=== PATIENT | male | born 1930 | race Caucasian/White ===

== ENCOUNTER 2019-08-02 15:37 | Inpatient (IN) | payer MEDICARE, OTHER ==
[~2019-08-02] VITALS: Ht 170.2 cm; Wt 72.6 kg
--- NOTE | 2019-08-02 15:50 | NUR ---
[facility] [address] From [facility] "Exhibiting agressive behavior pts and staff here for medical clearance". PT IS BRITISH-HONDURAN SPEAKING. UNABLE TO PROVIDE INFORMATION. NO ACUTE DISTRESS APPARENT. RR EVEN AND UNLABORED ON RA. SITTING COMFORTABLY AND READY FOR EVAL.
[2019-08-02] MEDS ORDERED: OLANZAPINE 10 MG VIAL IM ONE ×2 (16:10→16:30)
[2019-08-02] MEDS ORDERED: DOCU-141 PO (16:27)
[2019-08-02] MEDS ORDERED: RISP0.2515 PO (16:27)
[2019-08-02] MEDS ORDERED: NA P133E RC (16:27)
[2019-08-02] MEDS ORDERED: SENN-261 PO (16:27)
[2019-08-02] MEDS ORDERED: DIVA250T4 PO (16:27)
[2019-08-02] MEDS ORDERED: OMEG1CAP PO (16:27)
[2019-08-02] MEDS ORDERED: FERR325T23 PO (16:27)
[2019-08-02] MEDS ORDERED: ACET-868 PO (16:27)
[2019-08-02] MEDS ORDERED: MAGN400O6 PO (16:27)
--- NOTE | 2019-08-02 16:36 | NUR ---
URINE SENT TO STAT LAB
--- NOTE | 2019-08-02 17:08 | NUR ---
CALLED HEAD FILTER TANK TENDER HELPER TARIQ Cochran
--- NOTE | 2019-08-02 17:13 | NUR ---
BLOOD DRAWN WITHOUT INCIDENT AND SENT TO STAT LAB
[2019-08-02 17:18] LABS: BASOPHILS # (AUTO) 0.1 /CMM (0.0-0.2); BASOPHILS % (AUTO) 0.7 % (0.0-2.0); EOSINOPHILS % (AUTO) 2.5 % (0.0-6.0); HEMATOCRIT 32 % (39-51); HEMOGLOBIN 9.8 g/dL (13.5-17.5); LYMPHOCYTES # (AUTO) 1.7 /CMM (0.8-4.8); LYMPHOCYTES % (AUTO) 21.3 % (20.0-44.0); MEAN CORPUSCULAR HGB CONC 31 g/dl (31.0-36.0); MEAN CORPUSCULAR VOLUME 77 fL (80-96); MONOCYTES # (AUTO) 0.7 /CMM (0.1-1.30); MONOCYTES % (AUTO) 8.4 % (2.0-12.0); NEUTROPHILS # (AUTO) 5.4 /CMM (1.8-8.9); NEUTROPHILS % (AUTO) 67.1 % (43.0-81.0); PLATELET COUNT (AUTO) 411 /CMM (150-450); RED BLOOD CELL COUNT(AUTO) 4.11 MIL/uL (4.5-6.0)
[2019-08-02 17:25] LABS: CALCIUM, SERUM 9.1 mg/dL (8.5-10.1); CARBON DIOXIDE 28 mmol/L (21-32); CHLORIDE 107 mmol/L (98-107); CREATININE 1.3 mg/dL (0.6-1.3); GLUCOSE 120 mg/dL (74-106); POTASSIUM 4.1 mmol/L (3.5-5.1); SODIUM SERUM 144 mmol/L (136-145); UREA NITROGEN, BLOOD 24 mg/dL (7-18)
[2019-08-02 17:30] LABS: ALANINE AMINOTRANSFERASE 16 U/L (12-78); ALBUMIN 3.4 g/dL (3.4-5.0); ALCOHOL, BLOOD < 3 mg/dL (0-0); ALKALINE PHOSPHATASE 93 U/L (46-116); ASPARTATE AMINOTRANSFERASE 14 U/L (15-37); BILIRUBIN,DIRECT 0.1 mg/dL (0.0-0.2); BILIRUBIN,TOTAL 0.3 mg/dL (0.2-1.0); TOTAL PROTEIN, SERUM 7.4 g/dL (6.4-8.2)
[2019-08-02 17:31] LABS: ACETAMINOPHEN 0 ug/ml (10-30); SALICYLATE 0.4 mg/dL (2.8-20.0)
--- NOTE | 2019-08-02 18:30 | NUR ---
FOOD TRAY GIVEN
--- NOTE | 2019-08-02 18:37 | NUR ---
PINKY AT BEDSIDE
--- NOTE | 2019-08-02 19:30 | NUR ---
REPORT GIVEN TO MARTIN CARDOZA [id number] Addendum: 08/02/19 at 1932 by KRUPA AMRTIN NOVEM
--- NOTE | 2019-08-02 19:34 | NUR ---
PT TRANSFERRED TO UNIT VIA WHEELCHAIR
[2019-08-02 19:35] VITALS: BP 147/61
[2019-08-02 20:00] VITALS: BP_SYST 147; BP_SYST 151; BP_DIAS 57; BP_DIAS 61
--- NOTE | 2019-08-02 20:00 | NUR ---
GPS ADMISSION NOTES: ADMITTED THIS 88-Y/O, MALE FROM [facility] ER, INITIALLY PT CAME FROM [facility]. ADMITTED ON 5150 HOLD FOR DTO. PER HOLD PT. IS INCREASINGLY AGITATED, PARANOID WITH HIS ROOMMATE, EASILY AGITATED, LABILE, IMPULSIVE AND UNPREDICTABLE. UPON FACE TO FACE ASSESSMENT, PATIENT IS A BENINESE SPEAKING, A&O X1-2, ANXIOUS, EASILY GETS IRRITABLE, MOOD IS LABILE, CONFUSED, COOPERATIVE WITH CARE. AMBULATORY STEADY. IN NO APPARENT DISTRESS NOTED. SKIN ASSESSMENT DONE. WOUND CARE CONSULT ORDERED. PATIENT SIGNED ADMISSION CONSENTS. PT'S RIGHTS HANDBOOK & PT. GUIDELINES BOOK GIVEN & DISCUSSED TO THE PATIENT. PT BELONGINGS WERE INVENTORIED & CHECKED FOR CONTRABAND. PT. IS UNDER THE PSYCHIATRIC CARE OF DR. SAINZ ORDERS OBTAINED & UNDER THE MEDICAL CARE OF INESSA GRUBER. PATIENT EDUCATED TO THE USE OF CALL LYLE. BED ALARM ON. ENVIRONMENTAL SAFETY CHECK DONE. BED LOCKED & IN LOW POSITION. NO FAMILY TO NOTIFY OR TO CONTACT REGARDING PT.'S ADMISSION. WILL CONTINUE TO MONITOR Q15 MINUTES FOR SAFETY & BEHAVIOR.
[2019-08-02] MEDS ORDERED: MAG HYDROX/AL HYDROX/SIMETH 30 ML UDC PO PRN (20:30)
[2019-08-02] MEDS ORDERED: MAGNESIUM HYDROXIDE 30 ML UDC PO PRN ×2 (20:30→21:30)
[2019-08-02] MEDS ORDERED: ACETAMINOPHEN 325 MG TABLET PO PRN (20:30)
[2019-08-02] MEDS ORDERED: DIVALPROEX SODIUM 250 MG TABLET.DR PO SCH (21:30)
[2019-08-02] MEDS ORDERED: BLOOD SUGAR DIAGNOSTIC 1 EACH STRIP IN ONE (22:00)
[2019-08-02] MEDS: SENNOSIDES 8.6 MG TABLET PO SCH (22:32)
[2019-08-02] MEDS: TEMAZEPAM 7.5 MG CAPSULE PO PRN (22:33)
--- NOTE | 2019-08-02 22:33 | NUR ---
GPS-RN NOTE: INSOMNIA PATIENT C/O UNABLE TO SLEEP. ADMINISTERED RESTORIL 7.5MG PO ORDERED. WILL CONTINUE TO MONITOR PT'S SAFETY.
[2019-08-03] MEDS: DOCUSATE SODIUM 100 MG CAPSULE PO SCH (09:00)
[2019-08-03] MEDS: FERROUS SULFATE (325 MG) 325 MG/TAB TABLET PO SCH ×2 (09:00→20:51)
[2019-08-03 09:16] VITALS: BP 141/47
--- NOTE | 2019-08-03 09:34 | NUR ---
GPS/RN-NOTES PATIENT REFUSED ALL 0900AM MEDICATIONS. STATED" NO NO NO MEDICATIONS". OFFERED X3
[2019-08-03] MEDS: DIVALPROEX SODIUM 125 MG CAP.SPRINK PO SCH ×2 (13:39→16:57)
[2019-08-03 16:00] VITALS: BP 121/48
[2019-08-03 20:00] VITALS: BP 151/57
[2019-08-03] MEDS: TEMAZEPAM 7.5 MG CAPSULE PO PRN (20:51)
[2019-08-03 20:54] LABS: APPEARANCE,URINE CLEAR (CLEAR); BILIRUBIN,URINE NEGATIVE (NEGATIVE); BLOOD, URINE NEGATIVE Ery/uL (NEGATIVE); COLOR,URINE YELLOW (YELLOW); KETONES,URINE NEGATIVE (NEGATIVE); LEUKOCYTE ESTERASE ,URINE NEGATIVE (NEGATIVE); NITRITE, URINE NEGATIVE (NEGATIVE); PH,URINE 5.5 (5.0-8.0); PROTEIN,URINE NEGATIVE (NEGATIVE); UGLUCOSE NEGATIVE (NEGATIVE); UROBILINOGEN,URINE 0.2 EU/dL (0.2)
[2019-08-03] MEDS ORDERED: risperiDONE 0.25 MG TABLET PO SCH (21:00)
[2019-08-03] MEDS ORDERED: OLANZAPINE 2.5 MG TABLET PO SCH (21:00)
[2019-08-03] MEDS: LORAZEPAM 0.5 MG TABLET PO PRN (21:09)
[2019-08-03] MEDS: ACETAMINOPHEN 325 MG TABLET PO PRN (21:09)
[2019-08-03] MEDS: SENNOSIDES 8.6 MG TABLET PO SCH (21:19)
[2019-08-04 06:40] LABS: BASOPHILS % (AUTO) 0.5 % (0.0-2.0); EOSINOPHILS % (AUTO) 1.7 % (0.0-6.0); HEMATOCRIT 28 % (39-51); HEMOGLOBIN 8.8 g/dL (13.5-17.5); LYMPHOCYTES # (AUTO) 1.3 /CMM (0.8-4.8); LYMPHOCYTES % (AUTO) 16.5 % (20.0-44.0); MEAN CORPUSCULAR HGB CONC 32 g/dl (31.0-36.0); MEAN CORPUSCULAR VOLUME 77 fL (80-96); MONOCYTES # (AUTO) 0.7 /CMM (0.1-1.30); NEUTROPHILS # (AUTO) 5.8 /CMM (1.8-8.9); NEUTROPHILS % (AUTO) 72.3 % (43.0-81.0); PLATELET COUNT (AUTO) 346 /CMM (150-450); RED BLOOD CELL COUNT(AUTO) 3.66 MIL/uL (4.5-6.0); WHITE BLOOD COUNT (AUTO) 8.1 K/uL (4.3-11.0)
[2019-08-04 06:58] LABS: CALCIUM, SERUM 8.3 mg/dL (8.5-10.1); CREATININE 1.2 mg/dL (0.6-1.3); POTASSIUM 3.9 mmol/L (3.5-5.1)
[2019-08-04 08:00] VITALS: BP 130/56
[2019-08-04] MEDS: DIVALPROEX SODIUM 125 MG CAP.SPRINK PO SCH ×3 (08:16→17:09)
[2019-08-04] MEDS: FERROUS SULFATE (325 MG) 325 MG/TAB TABLET PO SCH ×2 (08:16→21:00)
[2019-08-04] MEDS: DOCUSATE SODIUM 100 MG CAPSULE PO SCH (08:16)
--- NOTE | 2019-08-04 09:00 | NUR ---
RN NOTE- PT IN HALLWAY AND ROOM. AMBULATORY. STEADY GAIT. BAHAMIAN SPEAKING DIFFICULT TO MAKE NEEDS KNOWN. CALLED SECURITY FOR SUPPLY CHAIN DESIGN MANAGER. NEEDS ATTENDED. PO INTAKE GOOD./ MED COMPLIANT. NO BEHAVIORAL ISSUES.
[2019-08-04] MEDS: risperiDONE 0.25 MG TABLET PO SCH ×2 (12:24→21:03)
[2019-08-04 16:00] VITALS: BP 112/50
--- NOTE | 2019-08-04 20:00 | NUR ---
GPS-RN NOTE: REFUSED WEEKLY SKIN ASSESSMENT PT REFUSED WEEKLY SKIN ASSESSMENT. DESPITE OF EXPLANATION THE RISKS AND BENEFITS. PATIENT BECAME AGITATED AND CONTINUED TO REFUSE. WILL CONTINUE TO MONITOR.
[2019-08-04] MEDS: SENNOSIDES 8.6 MG TABLET PO SCH (21:02)
[2019-08-04 21:04] VITALS: BP 132/52
--- NOTE | 2019-08-04 21:09 | NUR ---
GPS-RN NOTE: MED REFUSAL PATIENT REFUSED TO TAKE SCHEDULED FERROUS SULFATE FOR TONIGHT. EDUCATED PT. REGARDING IMPORTANCE OF MEDICATION COMPLIANCE. PT. CONTINUED TO REFUSE X3. WILL CONTINUE TO MONITOR.
[2019-08-05 08:00] VITALS: BP 136/57
[2019-08-05] MEDS: DOCUSATE SODIUM 100 MG CAPSULE PO SCH (08:03)
[2019-08-05] MEDS: FERROUS SULFATE (325 MG) 325 MG/TAB TABLET PO SCH ×2 (08:03→21:00)
[2019-08-05] MEDS: DIVALPROEX SODIUM 125 MG CAP.SPRINK PO SCH ×3 (08:04→16:32)
[2019-08-05 08:34] VITALS: BP 95/67
[2019-08-05 08:35] VITALS: BP 95/67
--- NOTE | 2019-08-05 08:52 | NUR ---
FACILITY CONTACT: SW contacted [facility] Address: [address], [place] [address] and spoke with lara Andrews who stated pt is able to return to the facility once stable for discharge.
--- NOTE | 2019-08-05 09:00 | NUR ---
RN NOTE- PT IN ROOM AND HALLWAY. QUIET CALM MED COMPLIANT AT PRESENT TIME, DIRECTABLE, DIFFICULT TO ELICIT INFORMATION. SWAZI SPEAKING. NO BEHAVIORAL ISSUES. BLUNTED AFFECT.
--- NOTE | 2019-08-05 09:45 | NUR ---
FAMILY CONTACT: SW contacted pts daughter Rula [phone] for collateral information. She states pt has been living at [facility] since December 2018 after he got aggressive with family and they were no longer able to care for him. She states that pt was at [facility] for a few months then was sent to [facility] 4 months ago due to his aggressive behavior and then pt was admitted to [facility]. She states this is pts second psychiatric hospitalization due to aggressive and combative behavior. She states pt wants to be in charge and knows everything and when things don't go his way he becomes agitated. She states that pt is from his and she wishes for him to return to [facility] once stable.
--- NOTE | 2019-08-05 10:04 | NUR ---
INITIAL DISCHARGE PLAN: Per daughter Rula [phone] she wishes for pt to return to [facility]. ALYSON contacted [facility] Address: [address], [place] [address] and spoke with lara Andrews who stated pt is able to return to the facility once stable for discharge. ALYSON will help form a safe and proper discharge in collaboration with .
--- NOTE | 2019-08-05 11:10 | NUR ---
WOUND CARE CONSULT: PT PRESENTS AMBULATORY AND CONTINENT WITH RT 5TH FINGERNAIL BANDAGED, PRESENT ON ADMISSION. PT REFUSED TO REMOVE BANDAGE. PER NURSING DOCUMENTATION AND PHOTO, RT 5TH FINGERNAIL IS VERY LOOSE. RECOMMEND SURGICAL CONSULT. DR FIGUEROA NOTIFIED OF CONSULT REQUEST. WILL SEE PRN.
[2019-08-05] MEDS: risperiDONE 0.25 MG TABLET PO SCH ×2 (12:29→21:08)
--- NOTE | 2019-08-05 14:44 | NUR ---
GROUP NOTE: SW encouraged pt to attend group therapy on this present day to discuss "discharge planning." Pt is not appropriate for group he is disorganized, confused, and disoriented and he is easily agitated and aggressive.
[2019-08-05 16:00] VITALS: BP 137/59
--- NOTE | 2019-08-05 20:00 | NUR ---
NURSE NOTES: PATIENT IN THE ROOM, AWAKE, NO COMPLAINS OF PAIN OR DISCOMFORT THIS TIME OF ASSESSMENT. PATIENT SPEAKS ANDORRAN ONLY. ADMINISTERED ORDERED MEDICATIONS, HOWEVER, PATIENT REFUSED. SENNA TAB AND FERROUS SULFATE WELL. BEHAVIOR REMAINS UNPREDICTABLE, CAN BE GUARDED AT TIMES. ATTENDED TO ALL OF PATIENT'S NEEDS. WILL CONTINUE TO MONITOR PATIENT FOR MOOD, SAFETY AND BEHAVIOR.
[2019-08-05 20:07] VITALS: BP 128/50
[2019-08-05] MEDS: SENNOSIDES 8.6 MG TABLET PO SCH (21:11)
[2019-08-06 08:00] VITALS: BP 126/76
[2019-08-06] MEDS: DOCUSATE SODIUM 100 MG CAPSULE PO SCH (09:00)
[2019-08-06] MEDS: FERROUS SULFATE (325 MG) 325 MG/TAB TABLET PO SCH ×2 (09:00→21:23)
[2019-08-06] MEDS: DIVALPROEX SODIUM 125 MG CAP.SPRINK PO SCH ×4 (09:00→17:11)
[2019-08-06] MEDS: risperiDONE 0.25 MG TABLET PO SCH ×4 (12:37→21:23)
--- NOTE | 2019-08-06 14:46 | NUR ---
GROUP NOTE: SW encouraged pt to attend group therapy on this present day to discuss "negative behavior." Pt is not appropriate for group he is disorganized, confused, and disoriented and he is easily agitated and aggressive. SW attempted to provide intervention however, pt walked away with angry mood and congruent affect.
[2019-08-06 16:00] VITALS: BP 127/50
[2019-08-06 20:08] VITALS: BP 113/49
[2019-08-06] MEDS: SENNOSIDES 8.6 MG TABLET PO SCH (21:23)
[2019-08-06] MEDS: TEMAZEPAM 7.5 MG CAPSULE PO PRN (22:03)
--- NOTE | 2019-08-06 22:03 | NUR ---
GPS-RN NOTE: INSOMNIA PATIENT C/O UNABLE TO SLEEP. ADMINISTERED RESTORIL 7.5MG PO ORDERED. WILL CONTINUE TO MONITOR PT'S SAFETY.
[2019-08-07 08:01] VITALS: BP 127/54
[2019-08-07] MEDS: DOCUSATE SODIUM 100 MG CAPSULE PO SCH (08:01)
[2019-08-07] MEDS: FERROUS SULFATE (325 MG) 325 MG/TAB TABLET PO SCH ×3 (08:01→20:58)
[2019-08-07] MEDS: DIVALPROEX SODIUM 125 MG CAP.SPRINK PO SCH ×4 (08:01→16:30)
--- NOTE | 2019-08-07 11:01 | NUR ---
Pt. refused wound treatment, explained on the importance and still refusing.
[2019-08-07] MEDS: risperiDONE 0.25 MG TABLET PO SCH ×3 (12:24→20:59)
[2019-08-07 16:00] VITALS: BP 135/62
--- NOTE | 2019-08-07 19:53 | NUR ---
NURSES NOTES: RECEIVED PATIENT IN BED, AWAKE , ALERT,CONFUSED ,PARANOID, EASILY AGITATED ,DISORGANIZED , NO COMPLAINS OF PAIN OR DISCOMFORT AT THIS TIME, NEEDS FREQUENTLY REDIRECTIONS ,ENCOURAGED PT. TO EXPRESS FEELING SAFETY AND FALL PRECAUTIONS OBSERVED. Q15 MIN CHECKS CONTINUED. WILL CONTINUE TO MONITOR PATIENT FOR MOOD, SAFETY AND BEHAVIOR
[2019-08-07 20:22] VITALS: BP 106/75
[2019-08-07] MEDS: SENNOSIDES 8.6 MG TABLET PO SCH (21:02)
[2019-08-08] MEDS: TEMAZEPAM 7.5 MG CAPSULE PO PRN (02:43)
[2019-08-08] MEDS: ACETAMINOPHEN 325 MG TABLET PO PRN (07:35)
[2019-08-08] MEDS: FERROUS SULFATE (325 MG) 325 MG/TAB TABLET PO SCH ×2 (07:35→21:39)
[2019-08-08] MEDS: DOCUSATE SODIUM 100 MG CAPSULE PO SCH (07:35)
[2019-08-08] MEDS: DIVALPROEX SODIUM 125 MG CAP.SPRINK PO SCH ×3 (07:35→16:20)
[2019-08-08 08:00] VITALS: BP 128/50
[2019-08-08] MEDS: risperiDONE 0.25 MG TABLET PO SCH ×3 (12:01→21:39)
--- NOTE | 2019-08-08 15:34 | NUR ---
Individual Note: SW attempted to speak to the pt in lieu of group therapy but the pt was not responding to the SW and was unable to engage in conversation. SW did not deem the pt appropriate for individual therapy.
[2019-08-08 16:00] VITALS: BP 129/69
--- NOTE | 2019-08-08 18:31 | NUR ---
PATIENT RESTING IN ROOM, AWAKE , ALERTX2, EASILY AGITATED, UZBEK SPEAKING , NO COMPLAINS OF PAIN OR DISCOMFORT AT THIS TIME, NEEDS ATTENDED ,ENCOURAGED PT. TO EXPRESS FEELING . PATIENT MED COMPLIANT SAFETY AND FALL PRECAUTIONS OBSERVED. WILL ENDORSE TO NEXT SHIFT FOR CARMEN
--- NOTE | 2019-08-08 20:02 | NUR ---
GPS/NETBACKUP ADMINISTRATOR NURSING NOTES: PT. LAYING IN BED RESTING. NO DISTRESS OR AGITATION NOTED. QUIET AT THIS TIME. NO C/O PAIN OR DISCOMFORT. SAFETY ENVIRONMENT OBSERVED AT ALL TIMES. WILL CONTINUE TO MONITOR Q 15 MIN FOR SAFETY AND BEHAVIOR.
[2019-08-08 20:41] VITALS: BP 117/42
[2019-08-08] MEDS: SENNOSIDES 8.6 MG TABLET PO SCH (21:39)
[2019-08-09 08:00] VITALS: BP 107/54
[2019-08-09] MEDS: DOCUSATE SODIUM 100 MG CAPSULE PO SCH (08:15)
[2019-08-09] MEDS: DIVALPROEX SODIUM 125 MG CAP.SPRINK PO SCH ×3 (08:15→16:50)
[2019-08-09] MEDS: FERROUS SULFATE (325 MG) 325 MG/TAB TABLET PO SCH ×2 (08:18→21:00)
--- NOTE | 2019-08-09 09:00 | NUR ---
RN NOTE- PT IN HALLWAY DAYROOM AND UNIT. PO INTAKE GOOD. AMBULATORY CALM .NEEDS ATTENDED. MED COMPLIANT DIFFICULT TO COMMUNICATE THOUGH CAN MAKE NEEDS KNOWN. PT DIRECTABLE AND NO BEHAVIORAL ISSUES NOTED
[2019-08-09] MEDS: risperiDONE 0.25 MG TABLET PO SCH ×3 (12:07→21:10)
--- NOTE | 2019-08-09 12:20 | NUR ---
RN NOTE- PT TOOK FIRST DOSE RISPERDAL BUT WOULD ONLY TAKE HALF HIS DEPAKOTE DOSE. DR SAINZ NOTIFIED AND AWARE.
[2019-08-09 16:00] VITALS: BP 120/54
--- NOTE | 2019-08-09 16:54 | NUR ---
RN NOTE- PT TOOK RISPERDAL BUT ONLY TOOK HALF DEPAKOTE DOSE. MD RIGGINS
--- NOTE | 2019-08-09 19:50 | NUR ---
GPS OPENING NOTES: PATIENT AWAKE, DEPRESSED MOOD, PARANOID, EASILY GETS IRRITATED, NO AGITATION NOTED AT THIS TIME. WILL CONTINUE TO MONITOR [id number] FOR SAFETY
[2019-08-09 20:00] VITALS: BP 156/67
[2019-08-09] MEDS: SENNOSIDES 8.6 MG TABLET PO SCH (22:00)
[2019-08-10 06:40] LABS: BASOPHILS # (AUTO) 0.1 /CMM (0.0-0.2); BASOPHILS % (AUTO) 0.8 % (0.0-2.0); EOSINOPHILS % (AUTO) 2.4 % (0.0-6.0); HEMATOCRIT 28 % (39-51); HEMOGLOBIN 9.1 g/dL (13.5-17.5); LYMPHOCYTES # (AUTO) 1.4 /CMM (0.8-4.8); MEAN CORPUSCULAR HGB CONC 32 g/dl (31.0-36.0); MEAN CORPUSCULAR VOLUME 77 fL (80-96); MONOCYTES # (AUTO) 0.7 /CMM (0.1-1.30); MONOCYTES % (AUTO) 9.7 % (2.0-12.0); NEUTROPHILS # (AUTO) 4.5 /CMM (1.8-8.9); NEUTROPHILS % (AUTO) 66.1 % (43.0-81.0); PLATELET COUNT (AUTO) 325 /CMM (150-450); WHITE BLOOD COUNT (AUTO) 6.8 K/uL (4.3-11.0)
[2019-08-10 07:13] LABS: ALANINE AMINOTRANSFERASE 19 U/L (12-78); ALBUMIN 2.9 g/dL (3.4-5.0); ALKALINE PHOSPHATASE 85 U/L (46-116); ASPARTATE AMINOTRANSFERASE 14 U/L (15-37); BILIRUBIN,TOTAL 0.4 mg/dL (0.2-1.0); CALCIUM, SERUM 8.4 mg/dL (8.5-10.1); CARBON DIOXIDE 26 mmol/L (21-32); CHLORIDE 104 mmol/L (98-107); CREATININE 1.4 mg/dL (0.6-1.3); GLUCOSE 89 mg/dL (74-106); POTASSIUM 4.2 mmol/L (3.5-5.1); SODIUM SERUM 140 mmol/L (136-145); TOTAL PROTEIN, SERUM 6.3 g/dL (6.4-8.2); UREA NITROGEN, BLOOD 18 mg/dL (7-18)
[2019-08-10 08:00] VITALS: BP 153/59
--- NOTE | 2019-08-10 08:00 | NUR ---
GPS/RN OPENING NOTE: RECEIVED PATIENT AWAKE, ALERT AND ORIENTED X 2-3, CALM, COOPERATIVE, DENIES SI/HI, AH/VH, NO AGITATION NOTED AT THIS TIME, AMBULATORY. WILL CONTINUE TO MONITOR Q15 MINS FOR SAFETY
[2019-08-10] MEDS: DOCUSATE SODIUM 100 MG CAPSULE PO SCH (08:06)
[2019-08-10] MEDS: FERROUS SULFATE (325 MG) 325 MG/TAB TABLET PO SCH ×3 (08:06→21:21)
[2019-08-10] MEDS: risperiDONE 0.25 MG TABLET PO SCH ×4 (08:07→21:13)
[2019-08-10] MEDS: DIVALPROEX SODIUM 125 MG CAP.SPRINK PO SCH ×4 (08:07→16:56)
[2019-08-10 08:23] LABS: VALPROIC ACID < 3 ug/mL (50-100)
--- NOTE | 2019-08-10 14:25 | NUR ---
GPS/RN NOTES DEPAKOTE 250MG 2CAPS TID. PATIENT TAKE 1 CAP ONLY INSTEAD OF 2 CAPS, MD IS AWARE NO NEW ORDER AT THIS TIME.
[2019-08-10 16:00] VITALS: BP 128/51
--- NOTE | 2019-08-10 16:35 | NUR ---
GPS/RN NOTES RISPERDAL 0.5MG 2 TABS TID PER DOCTOR FARRAG IS ON HOLD FOR NOW DUE TO DIASTOLIC BP 130/44 UNTIL FURTHER ORDER BY MEDICAL DOCTOR.
[2019-08-10 20:00] VITALS: BP 134/53
[2019-08-10 20:09] VITALS: BP 134/53
[2019-08-10] MEDS: SENNOSIDES 8.6 MG TABLET PO SCH (21:21)
[2019-08-11 08:00] VITALS: BP 114/54
[2019-08-11] MEDS: DOCUSATE SODIUM 100 MG CAPSULE PO SCH (08:25)
[2019-08-11] MEDS: DIVALPROEX SODIUM 125 MG CAP.SPRINK PO SCH ×3 (08:26→16:37)
[2019-08-11] MEDS: risperiDONE 0.25 MG TABLET PO SCH ×4 (08:26→20:20)
[2019-08-11] MEDS: FERROUS SULFATE (325 MG) 325 MG/TAB TABLET PO SCH ×2 (08:26→20:20)
--- NOTE | 2019-08-11 09:40 | NUR ---
GPS RN NOTE: PATIENT AWAKE, ALERT AND ORIENTED X 2-3, CALM, COOPERATIVE, DENIES SI/HI, AH/VH, NO AGITATION NOTED AT THIS TIME, AMBULATORY. WILL CONTINUE TO MONITOR Q15 MINS FOR SAFETY
[2019-08-11 16:00] VITALS: BP 129/52
[2019-08-11 20:00] VITALS: BP 110/40
[2019-08-11 20:03] VITALS: BP 110/40
[2019-08-11] MEDS: TEMAZEPAM 7.5 MG CAPSULE PO PRN ×2 (20:20→21:17)
[2019-08-11] MEDS: SENNOSIDES 8.6 MG TABLET PO SCH (21:17)
[2019-08-12] MEDS: LORAZEPAM 0.5 MG TABLET PO PRN (00:37)
--- NOTE | 2019-08-12 06:28 | NUR ---
RN NOTES Patient refused blood draw this am despite education provided. Also patient refused wound treatment and photo.
[2019-08-12] MEDS: risperiDONE 0.25 MG TABLET PO SCH ×2 (07:23→12:27)
[2019-08-12] MEDS: DIVALPROEX SODIUM 125 MG CAP.SPRINK PO SCH ×2 (08:04→12:27)
[2019-08-12] MEDS: DOCUSATE SODIUM 100 MG CAPSULE PO SCH (08:04)
[2019-08-12] MEDS: FERROUS SULFATE (325 MG) 325 MG/TAB TABLET PO SCH (08:08)
[2019-08-12 08:38] VITALS: BP 113/74
--- NOTE | 2019-08-12 09:00 | NUR ---
RN NOTE- PT AMBULATORY IN THE HALLWAY,ALERT AND ORIENTED X2, NO ACUTE DISTRESS NOTED. PT EASILY GETS IRRITABLE, CONFUSED, REDIRECTABLE. REORIENTATION PROVIDED. SAFETY PRECAUTIONS IMPLEMENTED. WILL CONTINUE TO MONITOR Q15MIN ROUNDS FOR SAFETY AND BEHAVIOR.
--- NOTE | 2019-08-12 09:05 | NUR ---
FAMILY CONTACT: ALYSON contacted pts daughter Rula [phone] to inform her pt will be discharged on this present day back to [facility]. Daughter agreed with discharge plan.
--- NOTE | 2019-08-12 10:34 | NUR ---
DISCHARGE NOTE: Pt will be discharged at 3:00pm via [facility] to [facility] [address] [address] [place] [address] . Pts daughter Rula [phone] has been notified and agrees with discharge plan. Pts mood is euthymic with congruent affect and pt denied visual/auditory hallucinations and denied suicidal/homicidal ideation. Pt will be under the care of Psychiatrist: Dr. Temitope Garcia [address], [place] [address] [phone] and House Admin: Dr. Milan Aguayo Address: [address], [place] [address] . The multidisciplinary exitcare form was done, printed, signed, and given to the patient.
--- NOTE | 2019-08-12 13:20 | NUR ---
SNF Contact: ALYSON faxed updated notes to [facility][Note 3] with attn to Juliana to the fax number: [phone].
--- NOTE | 2019-08-12 15:10 | NUR ---
RN DC NOTE- PT D/C AT THIS TIME VIA [facility] AND AMBULANCE STAFF TO [facility]. PT ALERT ORIENTED TO PERSON PLACE. CONFUSED AND CALM,. DIRECTABLE. VS STABLE, DC INSTRUCTIONS REVIEWED W AMBULANCE STAFF, MED RECON REVIEWED WITH MD ORDERS,. VERBALIZED UNDERSTANDING. VALUABLES RETURNED AND SIGNED FOR. ID [id number] REMOVED. PT EXCORTED OFF UNIT W AMBULANCE STAFF.
== END 2019-08-12 15:10 | DRG 885 ==
LOC: ER 15:45 → GPS 19:20
PROVIDERS: ADMIT Psychiatry & Neurology Psychosomatic Medicine; ATTEND Nurse Practitioner Acute Care
DX: F25.0 Schizoaffective disorder, bipolar type (principal); F01.50 Vascular dementia, unspecified severity, without behavioral disturbance, psychotic disturbance, mood disturbance, and anxiety; N17.0 Acute kidney failure with tubular necrosis; G93.41 Metabolic encephalopathy; Z87.440 Personal history of urinary (tract) infections; N40.0 Benign prostatic hyperplasia without lower urinary tract symptoms; D50.9 Iron deficiency anemia, unspecified; F41.9 Anxiety disorder, unspecified; F32.9 Major depressive disorder, single episode, unspecified; F29 Unspecified psychosis not due to a substance or known physiological condition; K80.20 Calculus of gallbladder without cholecystitis without obstruction; Z79.899 Other long term (current) drug therapy; Z73.6 Limitation of activities due to disability; E78.5 Hyperlipidemia, unspecified; S61.206A Unspecified open wound of right little finger without damage to nail, initial encounter; X58.XXXA Exposure to other specified factors, initial encounter; Y92.9 Unspecified place or not applicable
CPT/HCPCS: 36415; 80048-TC; 80053-TC; 80061-TC; 80076-TC; 80164-TC; 80305; 81000-TC; 82962-TC; 85025-TC; 87081-TC; 87086-TC; 97116-TC; 97530-TC; G0480; J3490

== ENCOUNTER 2019-12-19 23:07 | Inpatient (IN) | payer MEDICARE, OTHER ==
[~2019-12-19] VITALS: Ht 172.7 cm; Wt 68.0 kg
[~2019-12-19 23:07] MED LIST: ACET-868 PO; DOCU-141 PO; FERR325T23 PO; MAGN400O6 PO; NA P133E RC; OMEG1CAP PO; RISP0.2515 PO; SENN-261 PO
[2019-12-19 23:42] LABS: BASOPHILS % (AUTO) 0.4 % (0.0-2.0); EOSINOPHILS % (AUTO) 3.5 % (0.0-6.0); HEMATOCRIT 29 % (39-51); HEMOGLOBIN 8.9 g/dL (13.5-17.5); LYMPHOCYTES # (AUTO) 1.3 /CMM (0.8-4.8); LYMPHOCYTES % (AUTO) 15.7 % (20.0-44.0); MEAN CORPUSCULAR HGB CONC 31 g/dl (31.0-36.0); MEAN CORPUSCULAR VOLUME 76 fL (80-96); MONOCYTES # (AUTO) 0.9 /CMM (0.1-1.30); MONOCYTES % (AUTO) 10.9 % (2.0-12.0); NEUTROPHILS # (AUTO) 5.6 /CMM (1.8-8.9); NEUTROPHILS % (AUTO) 69.5 % (43.0-81.0); PLATELET COUNT (AUTO) 321 /CMM (150-450); RED BLOOD CELL COUNT(AUTO) 3.77 MIL/uL (4.5-6.0); WHITE BLOOD COUNT (AUTO) 8.1 K/uL (4.3-11.0)
--- NOTE | 2019-12-19 23:51 | NUR ---
COVID SAMPLE TAKEN AND SENT TO LAB
[2019-12-20] LABS: CALCIUM, SERUM 8.5 mg/dL (8.5-10.1); CARBON DIOXIDE 26 mmol/L (21-32); CHLORIDE 108 mmol/L (98-107); CREATININE 1.4 mg/dL (0.6-1.3); GLUCOSE 103 mg/dL (74-106); POTASSIUM 4.1 mmol/L (3.5-5.1); SODIUM SERUM 142 mmol/L (136-145); UREA NITROGEN, BLOOD 28 mg/dL (7-18)
[2019-12-20 00:06] LABS: ALANINE AMINOTRANSFERASE 15 U/L (12-78); ALBUMIN 3.1 g/dL (3.4-5.0); ALKALINE PHOSPHATASE 100 U/L (46-116); BILIRUBIN,DIRECT 0.1 mg/dL (0.0-0.2); BILIRUBIN,TOTAL 0.2 mg/dL (0.2-1.0)
[2019-12-20 00:08] LABS: SALICYLATE 0.3 mg/dL (2.8-20.0)
[2019-12-20 00:23] LABS: ASPARTATE AMINOTRANSFERASE 16 U/L (15-37)
--- NOTE | 2019-12-20 00:47 | NUR ---
URINE COLLECTED AND SENT TO LAB.
[2019-12-20 00:57] LABS: APPEARANCE,URINE Clear (CLEAR); BILIRUBIN,URINE Negative (NEGATIVE); BLOOD, URINE Negative Ery/uL (NEGATIVE); COLOR,URINE Yellow (YELLOW); KETONES,URINE Negative (NEGATIVE); LEUKOCYTE ESTERASE ,URINE Negative (NEGATIVE); NITRITE, URINE Negative (NEGATIVE); PH,URINE 5.5 (5.0-8.0); PROTEIN,URINE Negative (NEGATIVE); UGLUCOSE Negative (NEGATIVE); UROBILINOGEN,URINE 0.2 EU/dL (0.2)
[2019-12-20 01:13] LABS: ACETAMINOPHEN < 2 ug/ml (10-30); ALCOHOL, BLOOD < 3 mg/dL (0-0)
--- NOTE | 2019-12-20 01:30 | NUR ---
ART METAL WORKER PAGED PER DR BUCK.
--- NOTE | 2019-12-20 02:00 | NUR ---
ART DEPARTMENT OF SOCIOLOGY CHAIR PAGED PER DR BUCK.
--- NOTE | 2019-12-20 02:30 | NUR ---
ART CRA PAGED PER DR BUCK.
--- NOTE | 2019-12-20 03:58 | NUR ---
ART HUMAN RESOURCES TEMP PAGED FOR CRISIS/MENTAL HEALTH EVALUATION FOR THIS PATIENT.
--- NOTE | 2019-12-20 04:08 | NUR ---
PT RESTING COMFORTABLY IN BED. VSS. NO ACUTE DISTRESS NOTED. WILL CONTINUE TO MONITOR. SITTER AT BEDSIDE FOR SAFETY
--- NOTE | 2019-12-20 05:44 | NUR ---
REPORT GIVEN TO MARTIN MARIA FOR CARMEN
--- NOTE | 2019-12-20 06:00 | NUR ---
PT TRANSFERRED TO ROOM IN STABLE CONDITION
[2019-12-20 06:21] VITALS: BP 154/67
[2019-12-20] MEDS ORDERED: MAG HYDROX/AL HYDROX/SIMETH 30 ML UDC PO PRN (06:30)
[2019-12-20] MEDS ORDERED: LORAZEPAM 0.5 MG TABLET PO PRN (06:30)
[2019-12-20] MEDS ORDERED: TEMAZEPAM 7.5 MG CAPSULE PO PRN (06:30)
[2019-12-20] MEDS ORDERED: MAGNESIUM HYDROXIDE 30 ML UDC PO PRN (06:30)
[2019-12-20] MEDS ORDERED: ACETAMINOPHEN 325 MG TABLET PO PRN ×2 (06:30→11:00)
--- NOTE | 2019-12-20 06:33 | NUR ---
GPS RN NOTE RECEIVED PT FROM ER @ 0600, PT IS A 89 Y/O MALE COMING [facility]. PT IS HERE ON A 5150 DUE TO GD, PT WAS FOUND BEING DISRUPTIVE IN FACILITY AND AGGRESSIVE TOWARDS STAFF. PT IS A/O X 2-3, GUARDED, SUSPICIOUS, ISOLATIVE, FLAT AFFECT. SKIN CHECK WAS DONE, PICTURES TAKEN AND DOCUMENTED IN CHART, VITAL SIGNS STABLE: T: 98.0, P: 76, RR: 19, BP: 154/67, O2: 99. BLOOD SUGAR 85. PT DENIES SI/HI, PT DENIES ANY PAIN, NO DISTRESS NOTED. CONTRABAND CHECKED AND PLACED IN PTS LOCKER. PATIENT REFUSED TO SIGN PAPERWORK, PT WAS NOTIFIED REASON FOR HOSPITALIZATION/HOLD. DR. SAINZ AND DR. CELIS WILL BE APART OF THE PTS PLAN OF CARE. ENVIRONMENTAL CHECK DONE, ALL NEEDS MET AND ANTICIPATED, BED IN LOCKED AND LOWEST POSITION, BED ALARM ON, PT SHOWN HOW TO USE CALL LIGHT. WILL CONTINUE TO MONITOR Q15 MIN FOR SAFETY AND BEHAVIOR.
[2019-12-20] MEDS ORDERED: BLOOD SUGAR DIAGNOSTIC 1 EACH STRIP IN ONE (07:30)
[2019-12-20] MEDS ORDERED: MAG30ORA PO (07:50)
[2019-12-20] MEDS ORDERED: RISP0.2515 PO (07:50)
[2019-12-20] MEDS ORDERED: VALP250S22 PO (07:50)
[2019-12-20] MEDS ORDERED: TRIA80CR12 TP (07:50)
[2019-12-20 08:30] VITALS: BP 148/70
--- NOTE | 2019-12-20 09:29 | NUR ---
Facility Contact: ALYSON contacted Nola ([phone]), client service coordinator from [facility], and confirmed that the pt can return to the facility once he is stable for discharge.
--- NOTE | 2019-12-20 09:49 | NUR ---
Family Contact: SW called the pts daughter, uRla ([phone]), and left a voicemail stating that the SW would like to discuss the discharge plan.
[2019-12-20] MEDS: FERROUS SULFATE (325 MG) 325 MG/TAB TABLET PO SCH ×3 (11:00→21:32)
[2019-12-20] MEDS: DOCUSATE SODIUM 100 MG CAPSULE PO SCH ×2 (11:00→12:35)
--- NOTE | 2019-12-20 11:35 | NUR ---
Initial Discharge Plan: Pt currently resides at [facility] located at [address] [place] [address]; ([phone]). Per pt, he would like to return. SW will work with the pt and the MD regarding the pts discharge planning. SW will form a safe and proper discharge.
[2019-12-20] MEDS: DIVALPROEX SODIUM 250 MG TABLET.DR PO SCH ×2 (13:00→21:32)
[2019-12-20] MEDS: risperiDONE 1 MG TABLET PO SCH ×2 (13:00→17:00)
--- NOTE | 2019-12-20 14:39 | NUR ---
gps/rn pt refused meds today offered x3. pt states: " i would not live tll age of 89 if i was taking medication. the answer is : NO"
[2019-12-20 16:00] VITALS: BP 95/60
--- NOTE | 2019-12-20 17:32 | NUR ---
GPS/RN PT REFUSED MEDS FOR 1700 . OFFERED X3
--- NOTE | 2019-12-20 19:50 | NUR ---
GPS RN NOTE URINE SPECIMEN COLLECTED, CALLED LAB, SPOKE TO CHITO & SHE STATED THAT SHE WILL COME TO GPS UNIT TO BUSH REGENERATOR URINE SPECIMEN.
[2019-12-20 19:51] VITALS: BP 145/56
[2019-12-20 20:00] VITALS: BP 145/56
--- NOTE | 2019-12-20 20:30 | NUR ---
URINE SPECIMEN SENT TO THE LAB.
[2019-12-20 21:50] LABS: APPEARANCE,URINE CLOUDY (CLEAR); BILIRUBIN,URINE NEGATIVE (NEGATIVE); BLOOD, URINE NEGATIVE Ery/uL (NEGATIVE); COLOR,URINE YELLOW (YELLOW); KETONES,URINE NEGATIVE (NEGATIVE); LEUKOCYTE ESTERASE ,URINE NEGATIVE (NEGATIVE); NITRITE, URINE NEGATIVE (NEGATIVE); PH,URINE 5.5 (5.0-8.0); PROTEIN,URINE NEGATIVE (NEGATIVE); UGLUCOSE NEGATIVE (NEGATIVE); UROBILINOGEN,URINE 0.2 EU/dL (0.2)
[2019-12-20] MEDS: SENNOSIDES 8.6 MG TABLET PO SCH (22:00)
[2019-12-20 22:11] LABS: BACTERIA,URINE RARE /HPF (None Seen); RBC,URINE 0-2 /HPF (0-2); SQUAMOUS EPITHELIAL CELL,UR 0-2 /HPF (None Seen); URINE AMORPHOUS URATE Moderate /HPF (None Seen); WBC,URINE 0-2 /HPF (0-3)
[2019-12-20 22:15] VITALS: BP 143/60
--- NOTE | 2019-12-20 22:31 | NUR ---
GPS RN NOTE: REFUSED SENOKOT AT 2200 PATIENT REFUSED SENOKOT SCHEDULED AT 2200 X 3 DESPITE OF RISKS & BENEFITS EXPLANATIONS. WILL CONTINUE TO MONITOR.
--- NOTE | 2019-12-21 00:16 | NUR ---
GPS RN NOTE PATIENT IS AWAKE, WALKING AROUND IN THE HALLWAY, IN & OUT OF HIS ROOM. OFFERED RESTORIL ORDERED. VSS. BUT PATIENT REFUSED RESTORIL AT THIS TIME. WILL CONTINUE TO MONITOR FOR SAFETY.
[2019-12-21 06:47] LABS: BASOPHILS % (AUTO) 0.6 % (0.0-2.0); EOSINOPHILS % (AUTO) 3.3 % (0.0-6.0); HEMATOCRIT 26 % (39-51); HEMOGLOBIN 7.9 g/dL (13.5-17.5); LYMPHOCYTES # (AUTO) 1.4 /CMM (0.8-4.8); LYMPHOCYTES % (AUTO) 20.3 % (20.0-44.0); MEAN CORPUSCULAR HGB CONC 31 g/dl (31.0-36.0); MEAN CORPUSCULAR VOLUME 75 fL (80-96); MONOCYTES # (AUTO) 0.7 /CMM (0.1-1.30); MONOCYTES % (AUTO) 10.7 % (2.0-12.0); NEUTROPHILS # (AUTO) 4.4 /CMM (1.8-8.9); NEUTROPHILS % (AUTO) 65.1 % (43.0-81.0); PLATELET COUNT (AUTO) 296 /CMM (150-450); RED BLOOD CELL COUNT(AUTO) 3.43 MIL/uL (4.5-6.0); WHITE BLOOD COUNT (AUTO) 6.8 K/uL (4.3-11.0)
[2019-12-21 06:57] LABS: CALCIUM, SERUM 7.8 mg/dL (8.5-10.1); CREATININE 1.3 mg/dL (0.6-1.3); POTASSIUM 3.9 mmol/L (3.5-5.1)
[2019-12-21 08:00] VITALS: BP 113/63
[2019-12-21] MEDS: FERROUS SULFATE (325 MG) 325 MG/TAB TABLET PO SCH ×2 (09:00→20:36)
[2019-12-21] MEDS: DOCUSATE SODIUM 100 MG CAPSULE PO SCH (09:00)
[2019-12-21] MEDS: risperiDONE 1 MG TABLET PO SCH ×3 (11:05→16:58)
[2019-12-21] MEDS: DIVALPROEX SODIUM 250 MG TABLET.DR PO SCH ×3 (11:05→20:37)
[2019-12-21 16:00] VITALS: BP 118/53
[2019-12-21 20:00] VITALS: BP 122/53
[2019-12-21 20:35] VITALS: BP 122/53
--- NOTE | 2019-12-21 20:42 | NUR ---
GPS RN NOTE PATIENT REFUSED TO TAKE HIS MEDICINES WHEN OFFERED, AMBULATORY IN & OUT OF HIS ROOM, REDIRECTABLE, CALLED DAUGHTER ABE & DAUGHTER SPOKE TO THE PATIENT & HE AGREED TO TAKE HIS MEDICINES. DAUGHTER ALSO STATED THAT PATIENT MIGHT CHEEK OR SPIT OUT HIS MEDICINES WHEN NURSE IS NOT AROUND. MEDICINES GIVEN & SWALLOWED BY THE PATIENT AT THIS TIME. WILL CONTINUE TO MONITOR FOR ANY CHANGES.
[2019-12-21] MEDS: SENNOSIDES 8.6 MG TABLET PO SCH (22:00)
--- NOTE | 2019-12-21 22:23 | NUR ---
GPS RN NOTE: REFUSED SENOKOT AT 2200 PATIENT REFUSED SENOKOT SCHEDULED AT 2200 X 3 DESPITE OF RISKS & BENEFITS EXPLANATIONS. PATIENT STRONGLY CONTINUED TO REFUSE MEDICINE. WILL CONTINUE TO MONITOR.
[2019-12-22 08:00] VITALS: BP 138/61
[2019-12-22] MEDS: DIVALPROEX SODIUM 250 MG TABLET.DR PO SCH ×3 (08:00→21:00)
[2019-12-22] MEDS: FERROUS SULFATE (325 MG) 325 MG/TAB TABLET PO SCH ×2 (08:23→21:00)
[2019-12-22] MEDS: DOCUSATE SODIUM 100 MG CAPSULE PO SCH (08:23)
[2019-12-22] MEDS: risperiDONE 1 MG TABLET PO SCH ×3 (08:24→17:00)
--- NOTE | 2019-12-22 08:24 | NUR ---
RN NOTE: MEDICATION REFUSAL PT REFUSED AM DOSE DEPAKOTE, RISPERDAL AND FERROUS SULFATE. EDUCATED PT REGARDING IMPORTANCE OF MEDICATION COMPLIANCE. PT CONTINUED TO REFUSED X 3. BEGAN SWINGING ARMS.
--- NOTE | 2019-12-22 12:08 | NUR ---
RN NOTE: MEDICATION REFUSAL PT REFUSED 1300 DOSE RISPERDAL AND DEPAKOTE. EDUCATED PT REGARDING IMPORTANCE OF MEDICATION REFUSAL. PT CONTINUED TO REFUSE X 3.
[2019-12-22 15:56] VITALS: BP 124/52
--- NOTE | 2019-12-22 17:02 | NUR ---
RN NOTE: MEDICATION REFUSAL PT REFUSED 1700 RISPERDAL. EDUCATED PT REGARDING IMPORTANCE OF MEDICATION COMPLIANCE. PT CONTINUED TO REFUSE X 3.
[2019-12-22 20:00] VITALS: BP 134/53
--- NOTE | 2019-12-22 21:35 | NUR ---
RN NOTE: MEDICATION REFUSAL PT REFUSED 2100 DEPAKOTE & FERROUS SULFATE. EDUCATED PATIENT REGARDING IMPORTANCE OF MEDICATION COMPLIANCE BUT PT CONTINUED TO REFUSE X 3.
[2019-12-22] MEDS: SENNOSIDES 8.6 MG TABLET PO SCH (22:00)
--- NOTE | 2019-12-22 22:10 | NUR ---
RN NOTE: MEDICATION REFUSAL PT REFUSED 2200 SENOKOT. EDUCATED PATIENT REGARDING IMPORTANCE OF MEDICATION COMPLIANCE BUT PT CONTINUED TO REFUSE X 3.
--- NOTE | 2019-12-23 01:39 | NUR ---
GPS RN NOTE PATIENT IS AWAKE, AMBULATING IN & OUT OF HIS ROOM. CALM & RELAXED. NO BEHAVIOR EPISODE NOTED. SLEEPING INTERMITTENTLY. OFFERED RESTORIL PRN BUT PATIENT STRONGLY REFUSED TO TAKE SLEEPING MEDICINE. WILL CONTINUE TO MONITOR FOR ANY CHANGE OF BEHAVIOR.
[2019-12-23 08:00] VITALS: BP 119/50
[2019-12-23] MEDS: DIVALPROEX SODIUM 250 MG TABLET.DR PO SCH (08:00)
[2019-12-23] MEDS: risperiDONE 1 MG TABLET PO SCH (08:30)
[2019-12-23] MEDS: FERROUS SULFATE (325 MG) 325 MG/TAB TABLET PO SCH ×2 (08:30→20:51)
[2019-12-23] MEDS: DOCUSATE SODIUM 100 MG CAPSULE PO SCH (08:30)
--- NOTE | 2019-12-23 08:30 | NUR ---
RN NOTE: MEDICATION REFUSAL PT REFUSED ALL AM PO MEDICATIONS. EDUCATED PT ON NEED FOR MEDICATION COMPLIANCE. PT CONT TO REFUSE X 3. PT WAVING HIS ARM "NO" REPEATEDLY.
[2019-12-23] MEDS: VALPROIC ACID 250 MG/5 ML UDC PO SCH ×2 (12:52→17:00)
[2019-12-23] MEDS: risperiDONE-M 0.5 MG TAB.RAPDIS PO SCH ×2 (12:52→17:30)
--- NOTE | 2019-12-23 12:54 | NUR ---
RN NOTE: MEDICATION REFUSAL PT COMPLIED WITH 1300 DOSE RISPERDAL. NON-COMPLIANT WITH DEPAKENE SYRUP. EDUCATED PT RE IMPORTANCE OF MEDICATION COMPLIANCE. PT CONT TO REFUSE X 3.
[2019-12-23 16:00] VITALS: BP 133/66
--- NOTE | 2019-12-23 17:30 | NUR ---
RN NOTE: MEDICATION REFUSAL PT REFUSED DEPAKENE SYRUP. EDUCATED PT REGARDING IMPORTANCE OF MEDICATION COMPLIANCE. PT CONT'S TO REFUSE X 3.
[2019-12-23 19:40] VITALS: BP 134/61
[2019-12-23] MEDS: SENNOSIDES 8.6 MG TABLET PO SCH (21:07)
--- NOTE | 2019-12-23 21:07 | NUR ---
GPS RN NOTES: REFUSED [id number] PT REFUSED FERROUS SULFATE AND SENOKOT DUE. PT STATED, "NO." PT INCREASED AGITATION. EXPLAIN RISKS AND BENEFITS. PT STILL REFUSED X3. CONTINUE TO MONITOR.
--- NOTE | 2019-12-24 01:33 | NUR ---
GPS RN NOTES: REFUSED RESTORIL PT CAME OUT OF HIS ROOM AWAKE WALKING IN THE HALLWAY OF THE UNIT. ENCOURAGE PT TO EXPRESS THOUGHTS AND FEELINGS TO STAFF. ASKED PT IF HE IS UNABLE TO SLEEP. PT DID NOT RESPOND. OFFERED PT RESTORIL PO PRN ORDERED. PT SHOOK HIS HEAD/REFUSED AND WENT BACK TO ROOM AND STAYED IN BED. EDUCATED PT ON THE IMPORTANCE OF SLEEP. CONTINUE TO MONITOR.
--- NOTE | 2019-12-24 06:51 | NUR ---
GPS RN NOTES: REFUSED BLOOD DRAW PT REFUSED BLOOD DRAW TIS MORNING. PT INCREASED AGITATION WHEN EXPLAINING THE RISKS AND BENEFITS.PT STILL REFUSED X 3. LAB WILL TRY AGAIN LATER TODAY. WILL ENDORSE TO DAY SHIFT FOR F/U.
[2019-12-24 08:00] VITALS: BP 136/77
[2019-12-24] MEDS: VALPROIC ACID 250 MG/5 ML UDC PO SCH ×3 (09:00→17:00)
[2019-12-24] MEDS: DOCUSATE SODIUM 100 MG CAPSULE PO SCH (09:00)
[2019-12-24] MEDS: risperiDONE-M 0.5 MG TAB.RAPDIS PO SCH ×3 (09:00→17:33)
[2019-12-24] MEDS: FERROUS SULFATE (325 MG) 325 MG/TAB TABLET PO SCH ×2 (09:00→20:46)
--- NOTE | 2019-12-24 09:00 | NUR ---
RN NOTE: ALLYN OPTICAL ELEMENT COATER AT BEDSIDE. AIC AND H + H REVIEWED.
--- NOTE | 2019-12-24 09:24 | NUR ---
RN NOTE: MEDICATION REFUSAL PT REFUSED ALL AM 0900 MEDICATIONS. EDUCATED PT REGARDING IMPORTANCE OF MEDICAITON COMPLIANCE. PT CONTINUED TO REFUSE X 3 WITH WAVING ARMS. WILL ATTEMPT AGAIN LATER.
[2019-12-24 16:00] VITALS: BP 127/55
[2019-12-24] MEDS ORDERED: DEXTROSE 50%-WATER 50 ML DISP.SYRIN IV PRN (16:30)
[2019-12-24] MEDS ORDERED: INSULIN REGULAR, HUMAN 100 UNIT/ML 3 ML VIAL SQ PRN (16:30)
[2019-12-24] MEDS: BLOOD SUGAR DIAGNOSTIC 1 EACH STRIP IN SCH ×2 (17:30→21:06)
[2019-12-24 20:18] VITALS: BP 131/55
[2019-12-24] MEDS: SENNOSIDES 8.6 MG TABLET PO SCH (21:04)
--- NOTE | 2019-12-24 21:04 | NUR ---
GPS RN NOTES: REFUSED MEDICATION AND ACCU CHECK PT REFUSED FERROUS SULFATE AND SENOKOT DUE. PT SHOOK HIS HEAD ANS SAID NO. PT INCREASED AGITATION. EXPLAIN RISKS AND BENEFITS. PT STILL REFUSED X3. PT REFUSED ACCU CHECK WELL. EXPLAIN THE IMPORTANCE OF BLOOD SUGAR CHECK. PT STILL REFUSED X3. CONTINUE TO MONITOR.
[2019-12-25] MEDS: BLOOD SUGAR DIAGNOSTIC 1 EACH STRIP IN SCH ×4 (07:30→22:00)
[2019-12-25 08:00] VITALS: BP 141/50
[2019-12-25] MEDS: VALPROIC ACID 250 MG/5 ML UDC PO SCH (09:00)
[2019-12-25] MEDS: DOCUSATE SODIUM 100 MG CAPSULE PO SCH (09:00)
[2019-12-25] MEDS: risperiDONE-M 0.5 MG TAB.RAPDIS PO SCH ×3 (09:00→17:35)
[2019-12-25] MEDS: FERROUS SULFATE (325 MG) 325 MG/TAB TABLET PO SCH ×2 (09:00→21:08)
[2019-12-25 10:34] LABS: CALCIUM, SERUM 8.8 mg/dL (8.5-10.1); CARBON DIOXIDE 28 mmol/L (21-32); CHLORIDE 103 mmol/L (98-107); CREATININE 1.4 mg/dL (0.6-1.3); GLUCOSE 108 mg/dL (74-106); MAGNESIUM 2.2 mg/dL (1.8-2.4); PHOSPHORUS 2.3 mg/dL (2.5-4.9); POTASSIUM 3.8 mmol/L (3.5-5.1); SODIUM SERUM 137 mmol/L (136-145); UREA NITROGEN, BLOOD 23 mg/dL (7-18)
[2019-12-25 10:47] LABS: BASOPHILS # (AUTO) 0.1 /CMM (0.0-0.2); BASOPHILS % (AUTO) 0.7 % (0.0-2.0); HEMATOCRIT 30 % (39-51); HEMOGLOBIN 9.3 g/dL (13.5-17.5); LYMPHOCYTES # (AUTO) 1.6 /CMM (0.8-4.8); LYMPHOCYTES % (AUTO) 17.9 % (20.0-44.0); MEAN CORPUSCULAR HGB CONC 31 g/dl (31.0-36.0); MEAN CORPUSCULAR VOLUME 76 fL (80-96); MONOCYTES # (AUTO) 0.9 /CMM (0.1-1.30); MONOCYTES % (AUTO) 10.1 % (2.0-12.0); NEUTROPHILS # (AUTO) 5.9 /CMM (1.8-8.9); NEUTROPHILS % (AUTO) 68.3 % (43.0-81.0); PLATELET COUNT (AUTO) 355 /CMM (150-450); RED BLOOD CELL COUNT(AUTO) 3.93 MIL/uL (4.5-6.0); WHITE BLOOD COUNT (AUTO) 8.7 K/uL (4.3-11.0)
[2019-12-25] MEDS: DIVALPROEX SODIUM 125 MG CAP.SPRINK PO SCH ×2 (13:36→17:35)
[2019-12-25 16:00] VITALS: BP 119/58
[2019-12-25] MEDS ORDERED: K PHOS NEUTRAL 250 MG TABLET PO ONE (16:30)
--- NOTE | 2019-12-25 17:28 | NUR ---
RN-CO: Patient is RIESED , Dr Garcia made aware that she needs to order a back up IM antipsychotic. Waiting for MD's response.
--- NOTE | 2019-12-25 18:58 | NUR ---
RN note:PATIENT SELECTIVE WITH MEDS.
[2019-12-25 20:00] VITALS: BP 122/52
[2019-12-25] MEDS: SENNOSIDES 8.6 MG TABLET PO SCH (21:08)
--- NOTE | 2019-12-25 21:53 | NUR ---
GPS-RN NOTE: BS CHECK REFUSAL PATIENT REFUSED BLOOD SUGAR TO BE CHECKED. EXPLAINED RISKS AND BENEFITS. PATIENT CONTINUED TO REFUSE X3.
--- NOTE | 2019-12-26 00:55 | NUR ---
GPS-RN NOTE: INSOMNIA PATIENT UNABLE TO SLEEP. ADMINISTERED RESTORIL 7.5MG PO ORDERED. WILL CONTINUE TO MONITOR FOR SAFETY.
[2019-12-26] MEDS: BLOOD SUGAR DIAGNOSTIC 1 EACH STRIP IN SCH ×4 (07:30→22:31)
[2019-12-26 08:00] VITALS: BP 153/61
[2019-12-26] MEDS: risperiDONE-M 0.5 MG TAB.RAPDIS PO SCH ×3 (08:46→17:12)
[2019-12-26] MEDS: FERROUS SULFATE (325 MG) 325 MG/TAB TABLET PO SCH ×3 (08:46→20:26)
[2019-12-26] MEDS: DOCUSATE SODIUM 100 MG CAPSULE PO SCH ×2 (08:46→08:52)
[2019-12-26] MEDS: DIVALPROEX SODIUM 125 MG CAP.SPRINK PO SCH ×3 (08:46→17:12)
[2019-12-26 16:00] VITALS: BP 125/59
[2019-12-26 19:41] VITALS: BP 110/51
[2019-12-26] MEDS: SENNOSIDES 8.6 MG TABLET PO SCH (22:00)
--- NOTE | 2019-12-26 22:15 | NUR ---
GPS RN NOTE: MEDICATION REFUSAL PT REFUSED 2200 SENOKOT, PT DENIES HAVING A BM, BUT REFUSED TO TAKE MEDICATION. ATTEMPTED 3X, EDUCATED PT ABOUT THE MEDICATION AND BENEFITS OF TAKING THE MEDICATION, PT CONTINUED TO REFUSE. PT ALSO REFUSED INSULIN COVERAGE, PTS BS 136, DID NOT WANTED COVERAGE. WILL CONTINUE TO MONITOR Q15 MIN FOR SAFETY AND BEHAVIOR.
[2019-12-27] MEDS: BLOOD SUGAR DIAGNOSTIC 1 EACH STRIP IN SCH ×4 (07:30→21:32)
[2019-12-27 08:00] VITALS: BP 136/63
[2019-12-27] MEDS: risperiDONE-M 0.5 MG TAB.RAPDIS PO SCH ×3 (08:25→16:44)
[2019-12-27] MEDS: FERROUS SULFATE (325 MG) 325 MG/TAB TABLET PO SCH ×2 (08:25→21:25)
[2019-12-27] MEDS: DIVALPROEX SODIUM 125 MG CAP.SPRINK PO SCH ×3 (08:25→16:44)
[2019-12-27] MEDS: DOCUSATE SODIUM 100 MG CAPSULE PO SCH (08:26)
[2019-12-27] MEDS: OLANZAPINE 10 MG VIAL IM PRN ×2 (08:44→12:42)
--- NOTE | 2019-12-27 08:44 | NUR ---
rn notes administered Zyprexa 0.25 mg/ml im right upper deltoid area, per refusal of scheduled medication, because of BILL.
--- NOTE | 2019-12-27 12:42 | NUR ---
RN NOTES PATIENT REFUSED SCHEDULED MEDICATION TO BE TAKEN, PER REFUSAL OF PO MEDICATION ADMINISTERED ZYPREXA 0.25 MG/ML IM LEFT OUTER GLUTEAL AREA. CALLED THREE RN FOR HELP FOR INJECTION.
[2019-12-27 16:00] VITALS: BP 154/60
[2019-12-27 20:27] VITALS: BP 123/45
[2019-12-27] MEDS: SENNOSIDES 8.6 MG TABLET PO SCH (21:33)
--- NOTE | 2019-12-27 21:46 | NUR ---
GPS RN NOTE: MEDICATION REFUSAL PT. REFUSED SCHEDULED 2200 MEDICATION, SENOKOT TAB 17.2 MG AND ACCU CHECK. EXPLAINED RISKS AND BENEFITS. OFFERED 3X AND PT. STILL REFUSED. WILL CONTINUE TO MONITOR FOR SAFETY AND BEHAVIOR.
[2019-12-28] MEDS: BLOOD SUGAR DIAGNOSTIC 1 EACH STRIP IN SCH ×4 (07:30→21:21)
[2019-12-28] MEDS: DIVALPROEX SODIUM 125 MG CAP.SPRINK PO SCH ×3 (07:57→17:18)
[2019-12-28] MEDS: FERROUS SULFATE (325 MG) 325 MG/TAB TABLET PO SCH ×2 (07:58→21:16)
[2019-12-28] MEDS: risperiDONE-M 0.5 MG TAB.RAPDIS PO SCH ×3 (07:58→17:18)
[2019-12-28] MEDS: DOCUSATE SODIUM 100 MG CAPSULE PO SCH (07:58)
[2019-12-28 08:00] VITALS: BP 112/69
[2019-12-28 16:00] VITALS: BP 141/56
[2019-12-28] MEDS: SENNOSIDES 8.6 MG TABLET PO SCH (21:16)
--- NOTE | 2019-12-28 21:21 | NUR ---
GPS RN NOTE: PT. REFUSED 0 ACCU CHECK. EXPLAINED RISKS AND BENEFITS. OFFERED 3 TIMES AND PT. STILL REFUSED. WILL CONTINUE TO MONITOR FOR SAFETY AND BEHAVIOR.
[2019-12-29 06:11] VITALS: BP 113/51
[2019-12-29] MEDS: BLOOD SUGAR DIAGNOSTIC 1 EACH STRIP IN SCH ×4 (07:30→21:47)
[2019-12-29 08:00] VITALS: BP 136/59
[2019-12-29] MEDS: DOCUSATE SODIUM 100 MG CAPSULE PO SCH (08:06)
[2019-12-29] MEDS: FERROUS SULFATE (325 MG) 325 MG/TAB TABLET PO SCH ×2 (08:06→21:14)
[2019-12-29] MEDS: DIVALPROEX SODIUM 125 MG CAP.SPRINK PO SCH ×3 (08:08→17:17)
[2019-12-29] MEDS: risperiDONE-M 0.5 MG TAB.RAPDIS PO SCH ×3 (08:08→17:17)
[2019-12-29 16:00] VITALS: BP 137/50
--- NOTE | 2019-12-29 17:17 | NUR ---
GPS/RN PT REFUSED ACCUCHECKS TODAY OFFERED ON NUMEROUS OCCASIONS THOROUGH THE DAY
[2019-12-29 20:37] VITALS: BP 121/58
[2019-12-29] MEDS: SENNOSIDES 8.6 MG TABLET PO SCH (21:14)
[2019-12-30] MEDS: BLOOD SUGAR DIAGNOSTIC 1 EACH STRIP IN SCH ×4 (07:30→22:06)
[2019-12-30 08:00] VITALS: BP 137/50
[2019-12-30] MEDS: DIVALPROEX SODIUM 125 MG CAP.SPRINK PO SCH ×3 (08:28→17:54)
[2019-12-30] MEDS: DOCUSATE SODIUM 100 MG CAPSULE PO SCH (08:28)
[2019-12-30] MEDS: FERROUS SULFATE (325 MG) 325 MG/TAB TABLET PO SCH ×2 (08:28→21:08)
[2019-12-30] MEDS: risperiDONE-M 0.5 MG TAB.RAPDIS PO SCH ×3 (08:28→17:54)
[2019-12-30 16:00] VITALS: BP 133/51
[2019-12-30 20:35] VITALS: BP 135/65
[2019-12-30] MEDS: SENNOSIDES 8.6 MG TABLET PO SCH (21:09)
--- NOTE | 2019-12-31 06:32 | NUR ---
RN NOTES: PT. RESTING IN HIS ROOM , NO ACUTE DISTRESS/ CHANGES NOTED, ALL NEEDS ANTICIPATED, WILL CONTINUITY WITH CARE.
[2019-12-31 08:00] VITALS: BP 115/58
[2019-12-31] MEDS: BLOOD SUGAR DIAGNOSTIC 1 EACH STRIP IN SCH ×4 (08:51→22:00)
[2019-12-31] MEDS: FERROUS SULFATE (325 MG) 325 MG/TAB TABLET PO SCH ×3 (09:00→21:11)
[2019-12-31] MEDS: risperiDONE-M 0.5 MG TAB.RAPDIS PO SCH ×4 (09:00→17:53)
[2019-12-31] MEDS: DIVALPROEX SODIUM 125 MG CAP.SPRINK PO SCH ×3 (09:08→17:53)
[2019-12-31] MEDS: DOCUSATE SODIUM 100 MG CAPSULE PO SCH (09:08)
--- NOTE | 2019-12-31 09:40 | NUR ---
Facility Contact: ALYSON contacted Nola ([phone]), dispatch coordinator from [facility], and informed her that the pt will be discharged on Monday.
[2019-12-31] MEDS: OLANZAPINE 10 MG VIAL IM PRN (11:13)
--- NOTE | 2019-12-31 11:15 | NUR ---
refused am risperdal-given zyprexa injection.
--- NOTE | 2019-12-31 11:30 | NUR ---
refused am bgl and noon bgl.
[2019-12-31 16:00] VITALS: BP 135/56
--- NOTE | 2019-12-31 16:20 | NUR ---
medicated for agitation with ativan 0.5 mg po.
--- NOTE | 2019-12-31 16:49 | NUR ---
refused blood sugar check.
--- NOTE | 2019-12-31 18:29 | NUR ---
COMPLACENT,COOPERATIVE.WALKING FROM RM. TO TV RM.PLEASANT,TAKING RISPERDAL.
[2019-12-31 20:12] VITALS: BP 138/55
[2019-12-31] MEDS: SENNOSIDES 8.6 MG TABLET PO SCH (21:22)
--- NOTE | 2019-12-31 22:18 | NUR ---
GPS RN NOTE PATIENT REFUSED ACCU CHECK SCHEDULED AT 220 DESPITE OF RISKS & BENEFITS EXPLANATIONS. EASILY AGITATED WHEN ENCOURAGED TO DO ACCU CHECK. WILL CONTINUE TO MONITOR.
[2020-01-01] MEDS: BLOOD SUGAR DIAGNOSTIC 1 EACH STRIP IN SCH (07:30)
[2020-01-01 08:00] VITALS: BP 141/55
[2020-01-01] MEDS: DIVALPROEX SODIUM 125 MG CAP.SPRINK PO SCH ×3 (08:46→18:04)
[2020-01-01] MEDS: DOCUSATE SODIUM 100 MG CAPSULE PO SCH (08:46)
[2020-01-01] MEDS: risperiDONE-M 0.5 MG TAB.RAPDIS PO SCH ×4 (08:47→18:04)
[2020-01-01] MEDS: FERROUS SULFATE (325 MG) 325 MG/TAB TABLET PO SCH ×2 (08:47→21:00)
[2020-01-01] MEDS: OLANZAPINE 10 MG VIAL IM PRN (09:06)
[2020-01-01 09:21] LABS: ALANINE AMINOTRANSFERASE 16 U/L (12-78); ALBUMIN 2.8 g/dL (3.4-5.0); ALKALINE PHOSPHATASE 112 U/L (46-116); ASPARTATE AMINOTRANSFERASE 16 U/L (15-37); BILIRUBIN,TOTAL 0.4 mg/dL (0.2-1.0); CALCIUM, SERUM 8.7 mg/dL (8.5-10.1); CARBON DIOXIDE 25 mmol/L (21-32); CHLORIDE 106 mmol/L (98-107); CREATININE 1.4 mg/dL (0.6-1.3); GLUCOSE 106 mg/dL (74-106); MAGNESIUM 2.2 mg/dL (1.8-2.4); PHOSPHORUS 3.1 mg/dL (2.5-4.9); POTASSIUM 3.9 mmol/L (3.5-5.1); SODIUM SERUM 140 mmol/L (136-145); TOTAL PROTEIN, SERUM 6.5 g/dL (6.4-8.2); UREA NITROGEN, BLOOD 32 mg/dL (7-18)
[2020-01-01 09:22] LABS: BASOPHILS # (AUTO) 0.1 /CMM (0.0-0.2); BASOPHILS % (AUTO) 0.7 % (0.0-2.0); EOSINOPHILS % (AUTO) 2.8 % (0.0-6.0); HEMATOCRIT 29 % (39-51); HEMOGLOBIN 8.9 g/dL (13.5-17.5); LYMPHOCYTES # (AUTO) 1.1 /CMM (0.8-4.8); LYMPHOCYTES % (AUTO) 13.9 % (20.0-44.0); MEAN CORPUSCULAR HGB CONC 31 g/dl (31.0-36.0); MEAN CORPUSCULAR VOLUME 76 fL (80-96); MONOCYTES # (AUTO) 0.7 /CMM (0.1-1.30); MONOCYTES % (AUTO) 9.7 % (2.0-12.0); NEUTROPHILS # (AUTO) 5.6 /CMM (1.8-8.9); NEUTROPHILS % (AUTO) 72.9 % (43.0-81.0); PLATELET COUNT (AUTO) 332 /CMM (150-450); WHITE BLOOD COUNT (AUTO) 7.6 K/uL (4.3-11.0)
[2020-01-01 10:38] LABS: IRON, SERUM 28 ug/dl (50-175); TOTAL IRON BINDING CAPACITY 935 ug/dl (250-450)
[2020-01-01 11:30] LABS: FERRITIN 13 ng/mL (8-388)
--- NOTE | 2020-01-01 12:27 | NUR ---
dr. goel aware pt. refused am risperdal.
--- NOTE | 2020-01-01 12:27 | NUR ---
Facility Contact: ALYSON contacted Nola ([phone]), child care education coordinator from [facility], and informed her that the pt will be discharged on Monday instead.
--- NOTE | 2020-01-01 12:27 | NUR ---
Family Contact: SW called the pts daughter, Rula ([phone]), and left a voicemail stating that the pt will be discharged to the facility on Monday.
--- NOTE | 2020-01-01 14:00 | NUR ---
pt. took 1300 risperdal with a lot of coaxing.
[2020-01-01 16:00] VITALS: BP 128/65
--- NOTE | 2020-01-01 18:50 | NUR ---
rn indicated to pt. several times that urine sample needed.urine bottle at bedside.pt. non compliant.order per dr. goel.
[2020-01-01 20:08] VITALS: BP 131/49
[2020-01-01] MEDS: SENNOSIDES 8.6 MG TABLET PO SCH (21:10)
--- NOTE | 2020-01-01 21:10 | NUR ---
GPS RN NOTES: REFUSED MEDICATION PT REFUSED FERROUS SULFATE AND SENOKOT DUE. PT STATED, "NO." PT INCREASED AGITATION. EXPLAIN RISKS AND BENEFITS. PT STILL REFUSED X3. CONTINUE TO MONITOR.
--- NOTE | 2020-01-01 22:24 | NUR ---
GPS RN NOTES: REFUSED URINE COLLECTION/ SAMPLE PT REFUSED FOR URINE COLLECTION PER DRS ORDERS. EXPLAIN RISKS AND BENEFITS. PT INCREASED AGITATION ANS STATED "NO." PT REFUSED X3. WILL TRY AGAIN LATER.
[2020-01-02 08:00] VITALS: BP 141/63
[2020-01-02] MEDS: risperiDONE-M 0.5 MG TAB.RAPDIS PO SCH ×3 (08:38→16:32)
[2020-01-02] MEDS: DOCUSATE SODIUM 100 MG CAPSULE PO SCH (08:38)
[2020-01-02] MEDS: FERROUS SULFATE (325 MG) 325 MG/TAB TABLET PO SCH ×2 (08:38→21:16)
[2020-01-02] MEDS: DIVALPROEX SODIUM 125 MG CAP.SPRINK PO SCH ×3 (08:38→16:32)
--- NOTE | 2020-01-02 15:33 | NUR ---
Facility Contact: ALYSON contacted Nola ([phone]), practical nurse clinical coordinator from [facility], and informed her that the pt will be discharged on Monday.
--- NOTE | 2020-01-02 15:33 | NUR ---
Family Contact: SW called the pts daughter, Rula ([phone]), and informed her that the pt is going to be discharged to [facility] on Monday instead.
[2020-01-02 16:00] VITALS: BP 130/59
[2020-01-02 20:00] VITALS: BP 136/52
[2020-01-02 20:24] VITALS: BP 136/52
[2020-01-02] MEDS: SENNOSIDES 8.6 MG TABLET PO SCH (22:00)
--- NOTE | 2020-01-02 22:11 | NUR ---
GPS RN NOTE: REFUSED SENOKOT PATIENT REFUSED TO TAKE SENOKOT SCHEDULED DESPITE OF RISKS & BENEFITS EXPLANATIONS.
--- NOTE | 2020-01-03 06:29 | NUR ---
GPS RN NOTE PATIENT WAS EXPLAINED OF URINE COLLECTION SPECIMEN & CLEAN CONTAINER WAS GIVEN TO THE PATIENT. PATIENT WAS UNABLE TO PROVIDE URINE SPECIMEN IN A CONTAINER, HE USED THE TOILET INSTEAD. ATTEMPTED TO ASSIST THE PATIENT TO COLLECT THE SPECIMEN BUT PATIENT REFUSED. WILL ENDORSE TO AM RN.
[2020-01-03] MEDS: DOCUSATE SODIUM 100 MG CAPSULE PO SCH (07:44)
[2020-01-03] MEDS: DIVALPROEX SODIUM 125 MG CAP.SPRINK PO SCH ×2 (07:44→13:19)
[2020-01-03] MEDS: FERROUS SULFATE (325 MG) 325 MG/TAB TABLET PO SCH (07:44)
[2020-01-03] MEDS: risperiDONE-M 0.5 MG TAB.RAPDIS PO SCH ×2 (07:44→13:19)
[2020-01-03 08:00] VITALS: BP 128/59
--- NOTE | 2020-01-03 09:30 | NUR ---
Dr Garcia gave an order to D/C hold and D/C to [facility] and to follow up with the psych and medical doctors. Dr. Garcia ordered to continue same meds including prn and D/C the IM order for the refusal of po Risperdal.
--- NOTE | 2020-01-03 13:18 | NUR ---
SNF Contact: SW faxed COVID results and notes to [facility] with attention to Nola to the fax number: [phone].
--- NOTE | 2020-01-03 13:45 | NUR ---
GPS/RN Pt was discharged to [facility] (SNF) NO SI OR HI AT THE TIME OF DISCHARGE. REPORT GIVEN TO FACILITY.PROPERTY RETURNED. EXIT CARE, PRESCRIPTIONS, H&P AND LABS HANDED TO AMBULANCE. FAMILY AWARE OF DISCHARGE TO [facility].
--- NOTE | 2020-01-03 14:59 | NUR ---
Discharge Note: Pt was discharged to [facility] ([facility]) located at [address] [place] [address]; ([phone]). Pt was transported via [facility] at 1:30PM. Pts daughter, Rula ([phone]), was informed of the discharge. Upon discharge, the pt appears to be be in a euthymic mood and presents with a calm affect. The multidisciplinary exit care form was done, printed, signed, and given to the patient. Pt appeared to be alert and oriented x4 (time, place, self and situation). Pt denied both suicidal and homicidal ideation as well as auditory and visual hallucinations. Pt appeared ambulatory and well groomed. Pt will continue to be under the care of his psychiatrist, Dr. Temitope Garcia, located at [address], [place] [address]; and ornament setter, Dr. Milan Lackey, located at [address] [place] [address]; . The multidisciplinary exit care form was done, printed, signed, and given to the patient.
== END 2020-01-03 13:45 | DRG 885 ==
LOC: ER 23:07 → GPS 12-20 05:37
PROVIDERS: ADMIT Psychiatry & Neurology Psychosomatic Medicine; ATTEND Nurse Practitioner Acute Care
DX: F25.0 Schizoaffective disorder, bipolar type (principal); F01.50 Vascular dementia, unspecified severity, without behavioral disturbance, psychotic disturbance, mood disturbance, and anxiety; N17.0 Acute kidney failure with tubular necrosis; N18.9 Chronic kidney disease, unspecified; G93.41 Metabolic encephalopathy; E44.1 Mild protein-calorie malnutrition; F29 Unspecified psychosis not due to a substance or known physiological condition; G30.9 Alzheimer's disease, unspecified; F02.80 Dementia in other diseases classified elsewhere, unspecified severity, without behavioral disturbance, psychotic disturbance, mood disturbance, and anxiety; K80.20 Calculus of gallbladder without cholecystitis without obstruction; Z79.899 Other long term (current) drug therapy; D63.8 Anemia in other chronic diseases classified elsewhere; E11.22 Type 2 diabetes mellitus with diabetic chronic kidney disease; F41.9 Anxiety disorder, unspecified; N40.0 Benign prostatic hyperplasia without lower urinary tract symptoms; E78.5 Hyperlipidemia, unspecified; Z73.6 Limitation of activities due to disability; Z87.440 Personal history of urinary (tract) infections; Z91.19 Patient's noncompliance with other medical treatment and regimen; D50.9 Iron deficiency anemia, unspecified; F39 Unspecified mood [affective] disorder; N25.0 Renal osteodystrophy
CPT/HCPCS: 36415; 80048-TC; 80053-TC; 80061-TC; 80076-TC; 80305; 81000-TC; 82728-TC; 82962-TC; 83540-TC; 83735-TC; 84100-TC; 85025-TC; 87081-TC; 87086-TC; 97116-TC; 97530-TC; G0480; J1815; J3490; U0003-CS

== ENCOUNTER 2020-03-19 09:22 | Inpatient (IN) | payer MEDICARE, OTHER ==
[~2020-03-19] VITALS: Ht 170.2 cm; Wt 69.9 kg
[~2020-03-19 09:22] MED LIST changes: +MAG30ORA PO; -RISP0.2515 PO; +TRIA80CR12 TP
--- NOTE | 2020-03-19 09:22 | NUR ---
PT SHANNON FROM [facility] C/O CHEST WALL PAIN S/P GLF UNWITNESSED. PT IS AAOX2, NOT I NRESPIRATORY DISTRESS, HOOKED TO CURB AND GUTTER LABORER, KEPT RESTED AND COMFORTABLE. WILL CONTINUE TO MONITOR.
--- NOTE | 2020-03-19 09:30 | NUR ---
AT BEDSIDE FOR EVAL.
--- NOTE | 2020-03-19 09:35 | NUR ---
IV LINE ESTABLISHED BLOOD DRAWN AND SENT TO LAB.
[2020-03-19] MEDS ORDERED: RISP1TAB7 PO (09:45)
[2020-03-19] MEDS ORDERED: RISP0.5T5 PO (09:45)
[2020-03-19] MEDS ORDERED: TEMA15CA5 PO (09:45)
[2020-03-19 09:57] LABS: CALCIUM, SERUM 8.9 mg/dL (8.5-10.1); CARBON DIOXIDE 26 mmol/L (21-32); CHLORIDE 102 mmol/L (98-107); CREATININE 1.5 mg/dL (0.6-1.3); GLUCOSE 88 mg/dL (74-106); POTASSIUM 3.6 mmol/L (3.5-5.1); SODIUM SERUM 137 mmol/L (136-145); UREA NITROGEN, BLOOD 23 mg/dL (7-18)
[2020-03-19 09:59] LABS: BASOPHILS % (AUTO) 0.5 % (0.0-2.0); EOSINOPHILS % (AUTO) 2.1 % (0.0-6.0); HEMATOCRIT 37 % (39-51); HEMOGLOBIN 11.3 g/dL (13.5-17.5); LYMPHOCYTES # (AUTO) 1.1 /CMM (0.8-4.8); LYMPHOCYTES % (AUTO) 14.5 % (20.0-44.0); MEAN CORPUSCULAR HGB CONC 31 g/dl (31.0-36.0); MEAN CORPUSCULAR VOLUME 78 fL (80-96); MONOCYTES # (AUTO) 0.6 /CMM (0.1-1.30); MONOCYTES % (AUTO) 7.1 % (2.0-12.0); NEUTROPHILS % (AUTO) 75.8 % (43.0-81.0); PLATELET COUNT (AUTO) 383 /CMM (150-450); RED BLOOD CELL COUNT(AUTO) 4.71 MIL/uL (4.5-6.0); WHITE BLOOD COUNT (AUTO) 7.9 K/uL (4.3-11.0)
[2020-03-19 10:03] LABS: ALANINE AMINOTRANSFERASE 21 U/L (12-78); ALBUMIN 3.4 g/dL (3.4-5.0); ALKALINE PHOSPHATASE 100 U/L (46-116); ASPARTATE AMINOTRANSFERASE 17 U/L (15-37); BILIRUBIN,DIRECT 0.1 mg/dL (0.0-0.2); BILIRUBIN,TOTAL 0.5 mg/dL (0.2-1.0); TOTAL PROTEIN, SERUM 7.8 g/dL (6.4-8.2)
--- NOTE | 2020-03-19 10:15 | NUR ---
COVID SPECIMEN OBTAINED AND SENT TO LAB.
--- NOTE | 2020-03-19 11:04 | NUR ---
PAGED [facility].
[2020-03-19] MEDS ORDERED: Z GUARD REMEDY 2 OZ OINT TP PRN (11:30)
[2020-03-19] MEDS ORDERED: ACETAMINOPHEN 325 MG TABLET PO PRN ×2 (11:30)
[2020-03-19] MEDS ORDERED: MAGNESIUM HYDROXIDE 30 ML UDC PO PRN ×2 (11:30)
[2020-03-19] MEDS ORDERED: ASPIRIN 325 MG TABLET PO ONE (11:30)
[2020-03-19] MEDS ORDERED: ONDANSETRON HCL/PF 4 MG/2 ML VIAL IVP PRN (11:30)
[2020-03-19] MEDS ORDERED: NA PHOS,M-B/NA PHOS,DI-BA 1 EA ENEMA RC PRN (11:30)
[2020-03-19] MEDS ORDERED: TEMAZEPAM 15 MG CAPSULE PO PRN (11:30)
[2020-03-19] MEDS ORDERED: IV NS 0.9% 1,000 ML IV PRN (11:30)
[2020-03-19] MEDS ORDERED: MAG HYDROX/AL HYDROX/SIMETH 30 ML UDC PO PRN ×2 (11:30)
[2020-03-19] MEDS ORDERED: ASPIRIN 325 MG TABLET ONE (11:48)
--- NOTE | 2020-03-19 12:25 | NUR ---
REPORT GIVEN TO MARTIN COPE FOR CARMNE.
[2020-03-19 12:50] VITALS: BP 146/89
--- NOTE | 2020-03-19 12:50 | NUR ---
ELECTRO MECHANICAL DESIGNERCLINIC MD ASSOCIATE NOTES ADMITTED PT FROM ER WITH DX OF CHEST PAIN. PT HAS HX OF UNWITNESSED GROUND LEVEL FALL ON 03/18/2020 FROM [facility]. PT IS ALERT AND VERBALLY RESPONSIVE IN [place]. DENIES CHEST PAIN AT THIS TIME.SKIN IS INTACT.PT AMBULATES AD DAMION WITH STEADY GAIT. REALITY ORIENTATION GIVEN ABOUT HIS ROOM AND USE OF CALL LIGHT. ON DROPLET PRECAUTIONS FOR PENDING PCR RESULT.PT'S RAPID COVID TEST RESULT WAS NEGATIVE. PT WATCHING [place] CHANNEL. CALL LIGHT PLACED WITHIN REACH.
--- NOTE | 2020-03-19 14:00 | NUR ---
PT PULLED OUT HIS IV H/L TO LT AC AN TELE MONITOR BOX.NOTIFIED DR SCHMID AND MADE AWARE.
[2020-03-19] MEDS: ENOXAPARIN SODIUM 40 MG/0.4 ML DISP.SYRIN SQ SCH (14:15)
--- NOTE | 2020-03-19 15:00 | NUR ---
WITH A SPANISH FURNITURE MOVER DRIVER, PT FINALLY AGREED TO HAVE HIS TELE MONITOR REAPPLIED BUT REFUSED TO HAVE HER IV H/L REINSERTED.NOTIFIED DR SCHMID.
[2020-03-19 16:00] VITALS: BP 127/50
--- NOTE | 2020-03-19 16:44 | NUR ---
DR CAMPOS CAME TO SEE PT WITH NO NEW ORDER AT THIS TIME AND AWAITING FOR TROPONIN LEVEL(2ND)
[2020-03-19] MEDS: HYDROCODONE/APAP 5/325MG TABLET PO PRN ×2 (16:50→21:37)
--- NOTE | 2020-03-19 16:50 | NUR ---
PT C/O CHEST PAIN PA 5/10 AND WAS GIVEN NORCO PO.
--- NOTE | 2020-03-19 18:00 | NUR ---
PT SITTING IN BED AND WATCHING PORTUGUESE CHANNEL,PT REFUSED TO HAVE THE IV HEPLOCK REINSERTED INSPITE OF EXPLAINING THE RISKS AND BENEFITS.
--- NOTE | 2020-03-19 18:30 | NUR ---
PT DENIES ANY CHEST PAIN AT THE END OF THE SHIFT AND WAS SAYING HE WAS OK WITH A MARTIN[place]AIS RN MANAGER ENVIRONMENTAL SERVICES,MARTIN DIEHL.
--- NOTE | 2020-03-19 19:30 | NUR ---
TELE/RN OPENING NOTES RECEIVED PATIENT IN BED RESTING. PATIENT IS ALERT AND ORIENTED X 2, NON SAMI SPEAKING. PATIENT IS IN NO SIGNS OF SOB OR RESPIRATORY DISTRESS. BREATHING IS EVEN AND UNLABORED. TELE READING SR 71. PATIENT IS ON ROOM AIR TOLERATING WELL. PATIENT DOES NOT HAVE IV ACCESS AT THIS TIME, AND REFUSED WHEN ATTEMPT MADE, MD AWARE. PATIENT IS IN NO SIGNS OF DISTRESS, DENIES CHEST PAIN AT THIS TIME. SAFETY MEASURES ARE IN PLACE, BED IS LOCKED AND PLACED IN THE LOWEST POSITION, SIDE RAILS UP X 3, CALL LIGHT WITH WITHIN REACH. WILL CONTINUE TO MONITOR THROUGH OUT SHIFT.
[2020-03-19 20:00] VITALS: BP 115/44
[2020-03-19] MEDS: FERROUS SULFATE (325 MG) 325 MG/TAB TABLET PO SCH (21:37)
--- NOTE | 2020-03-19 21:40 | NUR ---
TELE/RN NOTES PATIENT NOTED WITH LEFT CHEST AREA PAIN. GIVEN NORCO 5-325 TAB PO. V/S ARE STABLE, WILL CONTINUE TO MONITOR.
[2020-03-19] MEDS ORDERED: SENNOSIDES 8.6 MG TABLET PO SCH (22:00)
[2020-03-19] MEDS ORDERED: risperiDONE 1 MG TABLET PO SCH (22:00)
--- NOTE | 2020-03-20 02:25 | NUR ---
TELE/RN NOTES PATIENT TELE MONITOR ON STAND BY. PATIENT REMOVING TELE BOX. PATIENT WAS EXPLAINED THE RISK AND BENEFITS FOR TELE MONITORING. PATIENT NOT LETTING NURSE NEAR HIM, AND REMOVED TELE BOX AND PLACED BOX ON SIDE OF BED. PATIENT IS STABLE. WILL CONTINUE TO MONITOR.
--- NOTE | 2020-03-20 05:00 | NUR ---
TELE/RN NOTES NURSE STARTED PATIENT BACK ON TELE MONITORING. PATIENT THAN REMOVED TELE LEADS AND BOX. PATIENT TRYING TO LEAVE ROOM. PATIENT REORIENTED TO STAY IN ROOM. PATIENT IS AGITATED AND FRUSTRATED, STARTED TO PUSH NURSE OUT OF HIS WAY. PATIENT WENT BACK INSIDE ROOM AND IS SITTING ON EDGE OF THE BED. PATIENT DOSE NOT WANT TELE BOX ON. PATIENT STATED, " I DON'T SPEAK YAKUT". PATIENT IS NOW LAYING IN BED. WILL CONTINUE TO MONITOR.
--- NOTE | 2020-03-20 06:40 | NUR ---
TELE/RN CLOSING NOTES PATIENT IN BED SLEEPING EASY TO AROUSE. PATIENT IS ALERT AND ORIENTED X 2, NON VIETNAMESE SPEAKING. PATIENT IS IN NO SIGNS OF SOB OR RESPIRATORY DISTRESS. BREATHING IS EVEN AND UNLABORED. PATIENT REMOVED TELE BOX MONITOR THIS MORNING AND REFUSES TO HAVE IT BACK IN PLACE. PATIENT REORIENTED AND EXPLAINED RISK AND BENEFITS OF TELE MONITOR. PATIENT IS ON ROOM AIR TOLERATING WELL. PATIENT DOES NOT HAVE IV ACCESS AT THIS TIME, AND REFUSED WHEN ATTEMPT MADE, MD AWARE. PATIENT IS IN NO SIGNS OF DISTRESS, CHEST PAIN NOT NOTED AT THIS TIME. ALL NEEDS HAVE BEEN MET DURING SHIFT. SAFETY MEASURES ARE IN PLACE, BED IS LOCKED AND PLACED IN THE LOWEST POSITION, SIDE RAILS UP X 2, CALL LIGHT WITH WITHIN REACH. WILL ENDORSE CARE TO DAY SHIFT NURSE.
--- NOTE | 2020-03-20 07:30 | NUR ---
TELE/RN OPENING NOTE Patient resting in bed, A&O x 1, confused and mostly Slovenian speaking. Breathing even and non-labored on RA, no SOB noted. No cardiac distress noted. Denies any pain and discomfort at this time. Refuses tele monitor, explained risks and benefits, patient kept taking it off. No IV access noted, per vice principal, patient kept refusing. Will attempt to have it inserted later. Sensation from all peripheral extremities intact. Will continue with current medical management. Addendum: 03/20/20 at 0756 by RON HEIN RN Bed locked to its lowest position, side rails x 2 up, call light in hand.
[2020-03-20 08:00] VITALS: BP 121/69
[2020-03-20] MEDS: HYDROCODONE/APAP 5/325MG TABLET PO PRN (08:24)
[2020-03-20] MEDS: FERROUS SULFATE (325 MG) 325 MG/TAB TABLET PO SCH ×2 (08:24→09:00)
[2020-03-20] MEDS: DOCUSATE SODIUM 100 MG CAPSULE PO SCH ×2 (08:24→09:00)
[2020-03-20] MEDS: ASPIRIN 325 MG TABLET PO SCH ×2 (08:24→09:00)
[2020-03-20] MEDS: risperiDONE 1 MG TABLET PO SCH ×2 (08:24→09:00)
[2020-03-20] MEDS: ENOXAPARIN SODIUM 40 MG/0.4 ML DISP.SYRIN SQ SCH ×2 (08:26→09:00)
--- NOTE | 2020-03-20 08:30 | NUR ---
TELE/RN NOTE Patient refusing to take PO meds and blood draw, explained its risks and benefits x 3 even had Desiree, RN translate. Patient reports left chest pain that is radiating to the left upper back upon coughing and breathing, offered pain medication and explained its importance, but patient states that he doesn't need the pain medication since "it makes it worse." Notified MD. Will continue to monitor.
--- NOTE | 2020-03-20 11:15 | NUR ---
TELE/RN NOTE Transferred safely to [facility] along with chart and belongings. Patient in bed, VSS, afebrile, no SOB noted. Denies any pain and discomfort at this time. Bed locked to its lowest position, side rails x2 up, call light in hand. Will continue with current medical management.
--- NOTE | 2020-03-20 11:30 | NUR ---
TELE/RN NOTE Paged Dr. Crowe, states clear from cardiology perspective. Okay to d/c.
--- NOTE | 2020-03-20 13:11 | NUR ---
TELE/RN NOTE Patient refuses influenza vaccine, educated its risks and benefits, insists to refuse. Will continue to monitor.
--- NOTE | 2020-03-20 14:00 | NUR ---
TELE/MILLWRIGHT APPRENTICE NOTE Patient picked up by 2 staff nurse via ambulance at 1400. All needs met and attended to. Patient remained stable, VSS, afebrile, no SOB noted. Denies any pain/discomfort at this time, offered pain medication before discharge but patient refused. No IV access noted. Skin is intact, no new skin impairments noted. Sensation from all peripheral extremities intact. Educated patient and Alice RN from [facility] regarding plan of care and discharge instructions, answered all their questions to their satisfaction, both verbalized understanding. Notified daughter of discharge. Patient left facility safely with all belongings and hospital documents.
== END 2020-03-20 14:15 | DRG 205 ==
LOC: ER 09:24 → TELE2 12:28 → TELE 03-20 10:42
PROVIDERS: ADMIT Internal Medicine; ATTEND Internal Medicine
DX: M94.0 Chondrocostal junction syndrome [Tietze] (principal); N17.0 Acute kidney failure with tubular necrosis; M62.82 Rhabdomyolysis; N18.9 Chronic kidney disease, unspecified; N40.0 Benign prostatic hyperplasia without lower urinary tract symptoms; E78.5 Hyperlipidemia, unspecified; J44.9 Chronic obstructive pulmonary disease, unspecified; I70.0 Atherosclerosis of aorta; K80.20 Calculus of gallbladder without cholecystitis without obstruction; Z79.899 Other long term (current) drug therapy; F20.9 Schizophrenia, unspecified; F29 Unspecified psychosis not due to a substance or known physiological condition; D63.8 Anemia in other chronic diseases classified elsewhere; W19.XXXA Unspecified fall, initial encounter; Y92.9 Unspecified place or not applicable; F03.90 Unspecified dementia, unspecified severity, without behavioral disturbance, psychotic disturbance, mood disturbance, and anxiety; N25.0 Renal osteodystrophy
CPT/HCPCS: 36415; 71250-TC; 80048-TC; 80076-TC; 84484-TC; 85025-TC; 87081-TC; 93307-TC; C9803; G0378; J1650; U0003

== ENCOUNTER 2020-03-22 09:40 | Emergency (ER) | payer MEDICARE, OTHER ==
[~2020-03-22] VITALS: Ht 170.2 cm; Wt 68.9 kg
[~2020-03-22 09:40] MED LIST changes: -OMEG1CAP PO; +RISP0.5T5 PO; +RISP1TAB7 PO; +TEMA15CA5 PO; -TRIA80CR12 TP
[2020-03-22] MEDS ORDERED: RISP0.2515 PO ×2 (09:49)
--- NOTE | 2020-03-22 10:03 | NUR ---
Patient came to ED BIB [facility] c/c chest pain ,ekg ,place on monitor ,gown ,lab draw obtained send to lab non distress @ this time .
[2020-03-22 10:07] LABS: BASOPHILS # (AUTO) 0.1 /CMM (0.0-0.2); BASOPHILS % (AUTO) 1.8 % (0.0-2.0); EOSINOPHILS % (AUTO) 0.8 % (0.0-6.0); HEMATOCRIT 32 % (39-51); HEMOGLOBIN 10.2 g/dL (13.5-17.5); LYMPHOCYTES # (AUTO) 0.7 /CMM (0.8-4.8); LYMPHOCYTES % (AUTO) 8.8 % (20.0-44.0); MEAN CORPUSCULAR HGB CONC 32 g/dl (31.0-36.0); MEAN CORPUSCULAR VOLUME 78 fL (80-96); MONOCYTES # (AUTO) 0.9 /CMM (0.1-1.30); MONOCYTES % (AUTO) 10.8 % (2.0-12.0); NEUTROPHILS # (AUTO) 6.2 /CMM (1.8-8.9); NEUTROPHILS % (AUTO) 77.8 % (43.0-81.0); PLATELET COUNT (AUTO) 326 /CMM (150-450); RED BLOOD CELL COUNT(AUTO) 4.17 MIL/uL (4.5-6.0)
[2020-03-22 10:18] LABS: CARBON DIOXIDE 28 mmol/L (21-32); CHLORIDE 103 mmol/L (98-107); CREATININE 1.5 mg/dL (0.6-1.3); GLUCOSE 92 mg/dL (74-106); POTASSIUM 3.6 mmol/L (3.5-5.1); SODIUM SERUM 136 mmol/L (136-145); UREA NITROGEN, BLOOD 24 mg/dL (7-18)
[2020-03-22 10:22] LABS: CALCIUM, SERUM 8.1 mg/dL (8.5-10.1)
--- NOTE | 2020-03-22 10:43 | NUR ---
Wrong entry for lac tray .
--- NOTE | 2020-03-22 10:47 | NUR ---
[facility] ETA [id number] PER MALI
--- NOTE | 2020-03-22 10:51 | NUR ---
Called report to [facility] supervisor border department Gabrielle Burnett Rn patient Dc home and instruction given agrees to follow up PMD in 1 day. Patient awake alert forgetful @ times deneis pain non distress .
[2020-03-22 10:56] VITALS: BP 110/67
--- NOTE | 2020-03-22 11:33 | NUR ---
Discharged per amnia back to facility with [facility] [address] ([place]). VSS No acute changes
== END 2020-03-22 11:35 | disposition home or self-care (01) ==
LOC: ER 09:44
DX: R07.89 Other chest pain (principal); F03.90 Unspecified dementia, unspecified severity, without behavioral disturbance, psychotic disturbance, mood disturbance, and anxiety; Z98.890 Other specified postprocedural states; Z79.899 Other long term (current) drug therapy
CPT/HCPCS: 36415; 71045-TC; 80048-TC; 84484-TC; 85025-TC